=== PATIENT | female | born 1945 | race Caucasian/White ===

== ENCOUNTER → 2018-09-05 11:53 | Outpatient (CLI) | payer OTHER, SELFPAY ==
--- NOTE | 2018-09-05 11:54 | DI.MG.S_ITS ---
BILATERAL DIGITAL SCREENING MAMMOGRAM 3D/2D WITH CAD: 09/05/2018 CLINICAL: Routine screening. Family history of breast cancer. Comparison is made to exams dated: 05/28/2016 mammogram, 02/22/2015 mammogram, and 02/16/2015 mammogram - [facility]. The tissue of both breasts is heterogeneously dense. This may lower the sensitivity of mammography. Current study was also evaluated with a Computer Aided Detection (CAD) system. No significant masses, calcifications, or other findings are seen in either breast. There has been no significant interval change. IMPRESSION: NEGATIVE There is no mammographic evidence of malignancy. A 1 year screening mammogram is recommended. This exam was interpreted at Station ID: [id number]. NOTE: For mammograms, a report in lay terms will be sent to the patient. Approximately 15% of breast malignancies will not be visualized mammographically. In the management of a palpable breast mass, a negative mammogram must not discourage biopsy of a clinically suspicious lesion. Electronically Signed By: Mala trivedi/nancy:09/05/2018 15:33:06 letter sent: Normal Exam ACR BI-RADS Category 1: Negative 3341F
[2018-09-08 15:06] LABS: Fecal Immunochemical Test NOT DETECTED
== END ==
PROVIDERS: PCP Physician Assistant; Visit Provider Physician Assistant
DX: Z12.31 Encounter for screening mammogram for malignant neoplasm of breast (principal); Z80.3 Family history of malignant neoplasm of breast; Z12.11 Encounter for screening for malignant neoplasm of colon
CPT/HCPCS: 77063; 77067; 82274

== ENCOUNTER → 2018-09-06 10:11 | Outpatient (CLI) | payer OTHER, SELFPAY ==
[2018-09-06 11:08] LABS: Alanine Aminotransferase 28 IU/L (9-52); Albumin Globulin Ratio 1.4 (1.0-2.8); Alkaline Phosphatase 60 U/L (38-126); Aspartate Aminotransferase 24 IU/L (14-36); BUN Creatinine Ratio 23.8 (6-22); Bilirubin Total 1.1 mg/dL (0.2-1.3); Blood Urea Nitrogen 19 mg/dL (7-17); Calcium 9.4 mg/dL (8.4-10.2); Carbon Dioxide 28 mmol/L (22-32); Chloride 106 mmol/L (98-107); Cholesterol 138 mg/dL (140-199); Estimated Glomerular Filt Rate > 60.0 mL/min (>60); Globulin 2.8 g/dL (1.7-4.1); Glucose 99 mg/dL (80-110); HDL Cholesterol 58 mg/dL (40-60); HEMOLYSIS < 15 (0-50); LDL Cholesterol Calculated 59 mg/dL (<100); Potassium 4.3 mmol/L (3.4-5.1); Sodium 144 mmol/L (137-145); Total Protein 6.8 g/dL (6.3-8.2); Triglycerides 106 mg/dL (35-150)
[2018-09-06 11:36] LABS: Thyroid Stimulating Hormone 0.73 uIU/mL (0.47-4.68)
[2018-09-06 14:16] LABS: Creatinine Urine Random 183.9 mg/dL
[2018-09-06 14:21] LABS: Microalbumi Creatinin Ratio Ur 3.2 ug/mg CR (<30); Microalbumin Urine Random < 0.6 mg/dL (0-1.6)
== END ==
PROVIDERS: PCP Physician Assistant; Visit Provider Physician Assistant
DX: E03.9 Hypothyroidism, unspecified (principal); E78.5 Hyperlipidemia, unspecified; I10 Essential (primary) hypertension
CPT/HCPCS: 36415; 80053; 80061; 82043; 82570; 84443

== ENCOUNTER → 2019-04-28 09:56 | Outpatient (CLI) | payer OTHER, SELFPAY ==
[2019-04-28 12:03] LABS: BUN Creatinine Ratio 25.7 (6-22); Blood Urea Nitrogen 18 mg/dL (7-17); Calcium 9.4 mg/dL (8.4-10.2); Carbon Dioxide 30 mmol/L (22-32); Chloride 103 mmol/L (98-107); Estimated Glomerular Filt Rate > 60.0 mL/min (>60); Glucose 97 mg/dL (80-110); HEMOLYSIS < 15 (0-50); Potassium 4.1 mmol/L (3.4-5.1); Sodium 141 mmol/L (137-145)
[2019-04-28 12:32] LABS: Thyroid Stimulating Hormone 3.59 uIU/mL (0.47-4.68)
== END ==
PROVIDERS: PCP Physician Assistant; Visit Provider Physician Assistant
DX: E03.9 Hypothyroidism, unspecified (principal); I10 Essential (primary) hypertension
CPT/HCPCS: 36415; 80048; 84443

== ENCOUNTER → 2019-06-12 13:36 | Outpatient (CLI) | payer OTHER, SELFPAY ==
[2019-06-12 14:50] LABS: Thyroid Stimulating Hormone 0.18 uIU/mL (0.47-4.68)
== END ==
PROVIDERS: PCP Physician Assistant; Visit Provider Physician Assistant
DX: E03.9 Hypothyroidism, unspecified (principal)
CPT/HCPCS: 36415; 84443

== ENCOUNTER → 2019-08-03 11:49 | Outpatient (CLI) | payer OTHER, SELFPAY ==
[2019-08-03 13:16] LABS: Thyroid Stimulating Hormone 0.28 uIU/mL (0.47-4.68)
== END ==
PROVIDERS: PCP Physician Assistant; Visit Provider Physician Assistant
DX: E03.9 Hypothyroidism, unspecified (principal); R79.89 Other specified abnormal findings of blood chemistry
CPT/HCPCS: 36415; 84443

== ENCOUNTER → 2019-11-04 10:38 | Outpatient (CLI) | payer OTHER, SELFPAY ==
[2019-11-04 11:38] LABS: Alanine Aminotransferase 15 IU/L (<35); Albumin 3.7 g/dL (3.5-5.0); Albumin Globulin Ratio 1.4 (1.0-2.8); Alkaline Phosphatase 63 U/L (38-126); Aspartate Aminotransferase 22 IU/L (14-36); BUN Creatinine Ratio 22.5 (6-22); Bilirubin Total 0.8 mg/dL (0.2-1.3); Blood Urea Nitrogen 18 mg/dL (7-17); Calcium 9.3 mg/dL (8.4-10.2); Carbon Dioxide 25 mmol/L (22-32); Chloride 104 mmol/L (98-107); Cholesterol 155 mg/dL (140-199); Estimated Glomerular Filt Rate > 60.0 mL/min (>60); Globulin 2.6 g/dL (1.7-4.1); Glucose 108 mg/dL (80-110); HDL Cholesterol 65 mg/dL (40-60); HEMOLYSIS < 15 (0-50); LDL Cholesterol Calculated 70 mg/dL (<100); Potassium 4.1 mmol/L (3.4-5.1); Sodium 136 mmol/L (137-145); Total Protein 6.3 g/dL (6.3-8.2); Triglycerides 101 mg/dL (35-150)
[2019-11-04 17:29] LABS: Thyroid Stimulating Hormone 0.41 uIU/mL (0.47-4.68)
[2019-11-04 19:44] LABS: Creatinine Urine Random 152.4 mg/dL
[2019-11-04 19:52] LABS: Microalbumi Creatinin Ratio Ur 3.9 ug/mg CR (<30); Microalbumin Urine Random < 0.6 mg/dL (0-1.6)
== END ==
PROVIDERS: PCP Physician Assistant; Visit Provider Physician Assistant
DX: E03.9 Hypothyroidism, unspecified (principal); E78.5 Hyperlipidemia, unspecified; I10 Essential (primary) hypertension
CPT/HCPCS: 36415; 80053; 80061; 82043; 82570; 84443

== ENCOUNTER → 2019-12-24 09:48 | Outpatient (CLI) | payer MEDICARE, SELFPAY ==
[2019-12-24 11:14] LABS: Thyroid Stimulating Hormone 0.24 uIU/mL (0.47-4.68)
== END ==
PROVIDERS: PCP Physician Assistant; Referring Provider Physician Assistant; Visit Provider Physician Assistant
DX: E03.9 Hypothyroidism, unspecified (principal); R79.89 Other specified abnormal findings of blood chemistry
CPT/HCPCS: 36415; 84443

== ENCOUNTER → 2020-05-24 11:11 | Outpatient (CLI) | payer MEDICARE, SELFPAY ==
[2020-05-24 13:01] LABS: TSH w/ Reflex to FT4 7.62 uIU/mL (0.47-4.68)
== END ==
PROVIDERS: PCP Registered Nurse Diabetes Educator; Referring Provider Registered Nurse Diabetes Educator; Visit Provider Registered Nurse Diabetes Educator
DX: E03.9 Hypothyroidism, unspecified (principal)
CPT/HCPCS: 36415; 84439; 84443

== ENCOUNTER → 2020-07-14 09:59 | Outpatient (CLI) | payer MEDICARE, SELFPAY ==
--- NOTE | 2020-07-14 10:01 | DI.RAD.S_ITS ---
PROCEDURE: XR CHEST 2V INDICATIONS: chronic cough, subjective wheezing TECHNIQUE: 2 views of the chest were acquired. COMPARISON: None. FINDINGS: Surgical changes and devices: None. Lungs and pleura: Lungs are clear. No pleural effusions or pneumothorax. Mediastinum: Mediastinal contours are normal. Heart size is normal. Bones and chest wall: No suspicious bony abnormalities. Soft tissues appear unremarkable. IMPRESSION: Normal for age, source of current chronic cough symptoms is not seen. Dictated by: Ac Carr M.D. on 07/14/2020 at 10:41 Approved by: Ac Carr M.D. on 07/14/2020 at 10:42
[2020-07-14 11:35] LABS: TSH w/ Reflex to FT4 2.25 uIU/mL (0.47-4.68)
[2020-07-15 14:36] LABS: Fecal Immunochemical Test Negative (Negative)
== END ==
PROVIDERS: PCP Registered Nurse Diabetes Educator; Referring Provider Registered Nurse Diabetes Educator; Visit Provider Registered Nurse Diabetes Educator
DX: R05 Cough (principal); E03.9 Hypothyroidism, unspecified; Z12.11 Encounter for screening for malignant neoplasm of colon
CPT/HCPCS: 36415; 71046; 82274; 84443

== ENCOUNTER → 2020-07-23 13:50 | Outpatient (CLI) | payer MEDICARE, SELFPAY ==
--- NOTE | 2020-07-23 14:18 | DI.MG.S_ITS ---
Patient Name: MARGARITO PERKINS date: 1945 Sex: F Attending Physician: Nicho Indications: Date: 07/23/2020 14:27 At the request of: JANAE IRVIN Procedure: MM screening mammo BI BILATERAL DIGITAL SCREENING MAMMOGRAM 3D/2D WITH CAD: 07/23/2020 CLINICAL: Routine screening. Family history of breast cancer. Comparison is made to exams dated: 09/05/2018 mammogram, 05/28/2016 mammogram, 02/22/2015 mammogram, and 02/16/2015 mammogram - [facility]. There are scattered fibroglandular elements in both breasts. Current study was also evaluated with a Computer Aided Detection (CAD) system. No significant masses, calcifications, or other findings are seen in either breast. There has been no significant interval change. IMPRESSION: NEGATIVE There is no mammographic evidence of malignancy. A 1 year screening mammogram is recommended. This exam was interpreted at Station ID: [id number]. NOTE: For mammograms, a report in lay terms will be sent to the patient. Approximately 15% of breast malignancies will not be visualized mammographically. In the management of a palpable breast mass, a negative mammogram must not discourage biopsy of a clinically suspicious lesion. Electronically Signed By: Kishore andersen/nancy:07/26/2020 09:57:05 letter sent: Normal Exam ACR BI-RADS Category 1: Negative 3341F
== END ==
PROVIDERS: PCP Registered Nurse Diabetes Educator; Referring Provider Registered Nurse Diabetes Educator; Visit Provider Registered Nurse Diabetes Educator
DX: Z12.31 Encounter for screening mammogram for malignant neoplasm of breast (principal); Z80.3 Family history of malignant neoplasm of breast
CPT/HCPCS: 77063; 77067

== ENCOUNTER → 2020-10-21 08:49 | Outpatient (CLI) | payer MEDICARE, SELFPAY ==
[2020-10-21 09:13] LABS: Add Manual Diff / Slide Review NO; Basophils Absolute Auto 0 /uL (0-100); Basophils Percent Auto 0.7 % (0-2); Eosinophils Absolute Auto 300 /uL (0-450); Eosinophils Percent Auto 4.1 % (2-4); Hematocrit 40.6 % (36-46); Hemoglobin 13.4 g/dL (12.0-16.0); Lymphocytes Absolute Auto 2500 /uL (1100-4500); Lymphocytes Percent Auto 35.3 % (25-40); Mean Corpuscular HGB Conc 32.9 % (30-36); Mean Corpuscular Hemoglobin 28.1 PG (26-34); Mean Corpuscular Volume 85.3 fL (80-100); Monocytes Absolute Auto 600 /uL (0-900); Monocytes Percent Auto 8.7 % (3-14); Neutrophils Absolute Auto 3700 /uL (1500-7000); Neutrophils Percent Auto 51.2 % (50-75); Platelet Count 237 X10^3/uL (150-400); Red Blood Cell Count 4.76 X10^6/uL (4.0-5.2); Red Cell Distribution Width 13.3 % (11.6-14.8); White Blood Cell Count 7.2 X10^3/uL (4.5-11.0)
[2020-10-21 09:40] LABS: Alanine Aminotransferase 14 IU/L (<35); Albumin 3.6 g/dL (3.5-5.0); Albumin Globulin Ratio 1.3 (1.0-2.8); Alkaline Phosphatase 65 U/L (38-126); Aspartate Aminotransferase 23 IU/L (14-36); BUN Creatinine Ratio 23.6 (6-22); Bilirubin Total 0.6 mg/dL (0.2-1.3); Blood Urea Nitrogen 17 mg/dL (7-17); Carbon Dioxide 28 mmol/L (22-32); Chloride 108 mmol/L (98-107); Cholesterol 148 mg/dL (140-199); Estimated Glomerular Filt Rate > 60.0 mL/min (>60); Globulin 2.7 g/dL (1.7-4.1); Glucose 119 mg/dL (80-110); HDL Cholesterol 66 mg/dL (40-60); HEMOLYSIS < 15 (0-50); LDL Cholesterol Calculated 63 mg/dL (<100); Magnesium 1.9 mg/dL (1.6-2.3); Sodium 139 mmol/L (137-145); Total Protein 6.3 g/dL (6.3-8.2); Triglycerides 95 mg/dL (35-150)
[2020-10-21 10:08] LABS: TSH w/ Reflex to FT4 2.28 uIU/mL (0.47-4.68)
[2020-10-21 10:24] LABS: Vitamin B12 322 pg/mL (239-931)
== END ==
PROVIDERS: PCP Registered Nurse Diabetes Educator; Referring Provider Registered Nurse Diabetes Educator; Visit Provider Registered Nurse Diabetes Educator
DX: E03.9 Hypothyroidism, unspecified (principal); I10 Essential (primary) hypertension; R73.9 Hyperglycemia, unspecified; E78.5 Hyperlipidemia, unspecified; K21.9 Gastro-esophageal reflux disease without esophagitis; Z51.81 Encounter for therapeutic drug level monitoring
CPT/HCPCS: 36415; 80053; 80061; 82607; 83036; 83735; 84443; 85025

== ENCOUNTER → 2020-12-13 17:29 | Outpatient (CLI) | payer MEDICARE, SELFPAY ==
--- NOTE | 2020-12-13 17:31 | DI.RAD.S_ITS ---
PROCEDURE: XR FOOT RT MIN 3V INDICATIONS: R heel/ankle pain x 1.5 months following inversion injury TECHNIQUE: 3 views of the foot were acquired. COMPARISON: None. FINDINGS: Bones: No fracture. 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 Spurring and cortical deformity at the base of the 5th metatarsal. Incidentally noted os peroneum. Hallux valgus appearance although weight-bearing views would be more specific. Large plantar and posterior calcaneal spurs. Soft tissues: No tibiotalar joint effusion. Achilles tendon appears normal. IMPRESSION: Large plantar and posterior calcaneal spurs. Degenerative changes as above Dictated by: Haja Gonzalez M.D. on 12/14/2020 at 9:18 Approved by: Haja Gonzalez M.D. on 12/14/2020 at 9:20
--- NOTE | 2020-12-13 17:31 | DI.RAD.S_ITS ---
PROCEDURE: XR ANKLE RT MIN 3V INDICATIONS: R heel/ankle pain x 1.5 months following inversion injury TECHNIQUE: 3 views of the ankle were acquired. COMPARISON: None. FINDINGS: Bones: No fracture. Tibiotalar joint degeneration, with chronic appearing ununited ossicles, spurring and sclerosis. Plantar posterior calcaneal spur. Diffuse hindfoot and midfoot degenerative changes. Soft tissues: No tibiotalar joint effusion. Achilles tendon appears normal. IMPRESSION: No fracture. If the patient's symptoms do not improve recommend MRI. Dictated by: Haja Gonzalez M.D. on 12/14/2020 at 9:20 Approved by: Haja Gonzalez M.D. on 12/14/2020 at 9:36
== END ==
PROVIDERS: PCP Registered Nurse Diabetes Educator; Referring Provider Registered Nurse Diabetes Educator; Visit Provider Registered Nurse Diabetes Educator
DX: M79.671 Pain in right foot (principal); M25.571 Pain in right ankle and joints of right foot; M77.31 Calcaneal spur, right foot; M19.071 Primary osteoarthritis, right ankle and foot
CPT/HCPCS: 73610; 73630

== ENCOUNTER → 2021-10-25 09:15 | Outpatient (CLI) | payer MEDICARE, SELFPAY ==
[2021-10-25 10:11] LABS: Mean Corpuscular HGB Conc 33.3 % (30-36); Mean Corpuscular Volume 84.7 fL (80-100)
[2021-10-25 10:36] LABS: Alkaline Phosphatase 52 U/L (38-126); Glucose 97 mg/dL (80-110); Potassium 4.3 mmol/L (3.4-5.1); Sodium 139 mmol/L (137-145)
[2021-10-25 11:13] LABS: TSH w/ Reflex to FT4 4.77 uIU/mL (0.47-4.68)
[2021-10-25 11:52] LABS: Free T4, Direct Thyroxine 1.66 ng/dL (0.78-2.19)
== END ==
PROVIDERS: PCP Registered Nurse Diabetes Educator; Referring Provider Registered Nurse Diabetes Educator; Visit Provider Registered Nurse Diabetes Educator
DX: E03.9 Hypothyroidism, unspecified (principal); R73.01 Impaired fasting glucose; I10 Essential (primary) hypertension; E78.5 Hyperlipidemia, unspecified
CPT/HCPCS: 36415; 80053; 80061; 83036; 84439; 84443; 85027

== ENCOUNTER → 2021-12-29 11:20 | Outpatient (CLI) | payer MEDICARE, SELFPAY ==
[2021-12-29 13:50] LABS: TSH w/ Reflex to FT4 1.46 uIU/mL (0.47-4.68)
== END ==
PROVIDERS: PCP Registered Nurse Diabetes Educator; Referring Provider Registered Nurse Diabetes Educator; Visit Provider Registered Nurse Diabetes Educator
DX: I10 Essential (primary) hypertension
CPT/HCPCS: 36415; 80053; 80061; 83036; 84443; 85027

== ENCOUNTER 2022-07-01 11:04 | Inpatient (IN) | payer MEDICARE, SELFPAY ==
[2022-07-01] VITALS (41 sets, daily range): BP systolic 99–184; BP diastolic 52–99; PULSE 54–71; RESP 17–51; TEMP 35.6; O2SAT 91–97; BMI 30.2
--- NOTE | 2022-07-01 11:19 | DI.RAD.S_ITS ---
PROCEDURE: XR CHEST 1V INDICATIONS: short of breath TECHNIQUE: One view of the chest was acquired. COMPARISON: [facility], CR, XR CHEST 2V, 07/14/2020, 10:04. FINDINGS: Surgical changes and devices: None. Lungs and pleura: On this semiupright portable chest examination, no large pneumothorax or large pleural effusions are seen. No focal infiltrates are seen. Mediastinum: The cardiac contours are within normal limits. The aorta demonstrates calcification and tortuosity. Bones and chest wall: No suspicious bony lesions. Age-appropriate bony degenerative changes are seen. Overlying soft tissues appear unremarkable. IMPRESSION: Limited portable chest examination, without a significant cardiopulmonary abnormality identified. Dictated by: Joe Schneider M.D. on 07/01/2022 at 10:56 Approved by: Joe Schneider M.D. on 07/01/2022 at 10:57
--- NOTE | 2022-07-01 11:19 | ED_ITS ---
HPI - SOB/Dyspnea <Mary Montejo DO - Last Filed: 07/02/22 18:53> General Chief Complaint: Shortness of Breath/Dyspnea Stated Complaint: SOB, Productive cough Time Seen by Provider: 07/01/22 11:11 History of Present Illness HPI Narrative: Patient is a 77-year-old female history of hypothyroid hypertension hyperlipidemia presenting with increasing shortness of breath. She says she says is increasing shortness of breath the last couple of weeks she noticed it mostly with like some sort of exertion. She actually says she is able to walk to have mild around the [facility] she does not need to stop. Afterwards she developed some coughing and some shortness of breath when she is coughin. Coughing seems to be her biggest complaint this morning. Her symptoms got significantly worse this morning. She at no time has any chest discomfort at any time. She thought it may be due to allergies so she took an [id number] allergy medication without any relief. This morning she had worsening shortness of breath. She denies any orthopnea no peripheral swelling. She has some obvious respiratory distress and audible wheezing while questioni ng. She has no fever or chills. No infectious like symptoms. Related Data Home Medications Medication Instructions Recorded Confirmed [ARREDS] 1 tab PO QDAY ##0 08/22/17 07/02/22 multivitamin (Multiple Vitamins 1 tab PO QDAY ##0 08/22/17 07/02/22 tablet) atorvastatin 10 mg tablet 10 mg PO BEDTIME 07/02/22 07/02/22 metoprolol succinate 50 mg 50 mg PO DAILY 07/02/22 07/02/22 tablet,extended release 24 hr Previous Rx's Medication Instructions Recorded omeprazole 20 mg capsule,delayed 20 mg PO DAILY #90 caps 04/24/21 release levothyroxine 112 mcg tablet 112 mcg PO DAILY #90 tabs 01/01/22 Allergies Allergy/AdvReac Type Severity Reaction Status Date / Time cefaclor Allergy Severe (Ceclor) Verified 07/01/22 11:23 HIVES AND SWELLING hydrochlorothiazide AdvReac Severe PANCREATITI Verified 07/01/22 11:23 S Review of Systems <DO Mary Arora Last Filed: 07/02/22 18:53> Review of Systems Narrative: GENERAL: Denies chills, fatigue, malaise, fever, sweats, travel HEENT: Denies sinus pain, ear pain, sore throat, difficulty swallowing, neck pain RESPIRATORY: See HPI CARDIOVASCULAR: Denies chest pain, palpitations, orthopnea, edema GASTROINTESTINAL: Denies nausea, vomiting, abdominal pain, diarrhea, constipation, melena. : Denies dysuria, frequency, incontinence, hematuria, urinary retention, flank pain. MUSCULOSKELETAL: Denies weakness, joint pain, or bony pain SKIN: No rash, no erythema, no pruritus NEUROLOGIC: Denies weakness, dizziness, headache, numbness, change in speech, confusion PSYCHIATRIC: No concerning psychosocial issues. 12 point review of systems is negative except for those stated above and HPI Patient History <Mary Montejo DO - Last Filed: 07/02/22 18:53> Medical History (Updated 07/02/22 @ 22:19 by JEREMY Lewis) Chronic cough GERD (gastroesophageal reflux disease) Hypothyroidism (acquired) Impaired fasting blood sugar LPRD (laryngopharyngeal reflux disease) Surgical History (Updated 07/02/22 @ 22:19 by JEREMY Lewis) History of appendectomy Family History (Updated 07/02/22 @ 22:21 by JEREMY Lewis) Mother Congestive heart failure Father Stroke Alcohol abuse Social History household members: none Smoking Status: Never smoker second hand exposure: No alcohol intake: current substance use type: does not use Smoking Status: Never smoker Exam <Mary Montejo DO - Last Filed: 07/02/22 18:53> Initial Vital Signs Initial Vital Signs: Vital Signs Pulse Rate 69 07/01/22 11:14 Pulse Oximetry 95 07/01/22 11:14 GENERAL: Alert 77-year-old female with [id number] respiratory distress HEENT: Head atraumatic,EOMI, pupils reactive, face symmetric, moist mucous membranes CARDIOVASCULAR: Regular rate and rhythm without murmurs, rubs or gallops. RESPIRATORY: Tachypneic audible wheezing breath sounds wheezing bilaterally speaks in about 5 word sentences ABDOMEN: Soft, nontender. Normoactive bowel sounds all 4 quadrants. No guarding or rebound. EXTREMITIES: Normal range of motion, no clubbing or edema. Neurovascularly intact NEUROLOGICAL: Alert and oriented x4. SKIN: Warm, dry, no laceration, no petechiae, no rashes or lesions. <Rosy Srivastava, DO - Last Filed: 07/02/22 23:17> Initial Vital Signs Initial Vital Signs: Vital Signs Pulse Rate 69 07/01/22 11:14 Pulse Oximetry 95 07/01/22 11:14 Course <Mary Nikia, DO - Last Filed: 07/02/22 18:53> Orders Ordered: ED Orders 07/02/22 17:25 PTT [Partial Thromboplastin Time] Stat 07/03/22 11:00 CMP [Comprehensive Metabolic Panel] DAILY Complete Blood Count AUTO DIFF DAILY Troponin I DAILY 07/04/22 11:00 CMP [Comprehensive Metabolic Panel] DAILY Complete Blood Count AUTO DIFF DAILY Troponin I DAILY 07/05/22 11:00 CMP [Comprehensive Metabolic Panel] DAILY Complete Blood Count AUTO DIFF DAILY Troponin I DAILY 07/06/22 11:00 CMP [Comprehensive Metabolic Panel] DAILY Complete Blood Count AUTO DIFF DAILY Troponin I DAILY Acetaminophen (Acetaminophen 325 Mg Tablet) 650 mg PO Q6HR PRN PRN Reason: Fever/Mild Pain (1-3) Albuterol (Albuterol 2.5 Mg/3 Ml Neb (Adult)) 2.5 mg INH RTQ4HR PRN PRN Reason: Shortness Of Breath Or Wheezing Last Admin: 07/02/22 21:33 Dose: 2.5 mg Documented By: DALE Albuterol/Ipratropium (Albuterol/Ipratropium 3 Ml Ampul) 3 ml INH RTQ4HR PRN PRN Reason: Shortness Of Breath Aspirin (Aspirin 81 Mg Chew Tab) 324 mg PO DAILY [facility] Last Admin: 07/02/22 08:26 Dose: 324 mg Documented By: AMU Atorvastatin Calcium (Atorvastatin 20 Mg Tablet) 80 mg PO DAILY [facility] Last Admin: 07/02/22 08:24 Dose: 80 mg Documented By: AMU Heparin Sodium/Dextrose (Heparin Drip) 25,000 unit in 500 mls @ 20 mls/hr IV CONT YEE; Protocol Last Admin: 07/02/22 19:19 Dose: 800 units/hr, 16 mls/hr Documented By: Titration: 07/02/22 19:19 Dose: 800 units/hr, 16 mls/hr Documented By: Titration: 07/02/22 18:25 Dose: 800 units/hr, 16 mls/hr Documented By: Titration: 07/02/22 12:23 Dose: 800 units/hr, 16 mls/hr Documented By: Titration: 07/02/22 05:07 Dose: 800 units/hr, 16 mls/hr Documented By: Titration: 07/01/22 22:56 Dose: 850 units/hr, 17 mls/hr Documented By: Titration: 07/01/22 21:56 Dose: 0 units/hr, 0 mls/hr Documented By: Admin: 07/01/22 14:57 Dose: 1,000 units/hr, 20 mls/hr Documented By: AT Levothyroxine Sodium (Levothyroxine 112 Mcg Tablet) 112 mcg PO DAILY@0600 [facility] Last Admin: 07/02/22 07:26 Dose: 112 mcg Documented By: JAIDEN Lutein (Vit C/E/Zn/Coppr/Lutein/Zeaxan Capsule) 1 cap PO DAILY [facility] Metoprolol Succinate (Metoprolol Er 50 Mg Tablet) 50 mg PO DAILY [facility] Last Admin: 07/02/22 08:24 Dose: 50 mg Documented By: AMViolette Morphine Sulfate (Morphine 2 Mg/Ml Inj) 2 mg IV Q5MIN PRN PRN Reason: Chest Pain Nitroglycerin (Nitroglycerin 0.4 Mg Sl Tab) 0.4 mg SL [id number] PRN PRN Reason: Chest Pain Ondansetron HCl (Ondansetron 4 Mg/2 Ml Inj) 4 mg IV Q4HR PRN PRN Reason: nausea Pantoprazole Sodium (Pantoprazole Dr 20 Mg Tablet) 20 mg PO DAILY [facility] Prednisone (Prednisone 20 Mg Tablet) 40 mg PO DAILY [facility] Stop: 07/08/22 08:59 Sennosides (Sennosides 8.6 Mg Tablet) 17.2 mg PO BEDTIME YEE Last Admin: 07/02/22 20:34 Dose: 17.2 mg Documented By: AMH Sodium Chloride (Sodium Chloride 0.9% Flush) 10 ml IV PRN PRN PRN Reason: Flush Last Admin: 07/02/22 21:28 Dose: 10 ml Documented By: AMH Sodium Chloride (Sodium Chloride 0.9% Flush) 10 ml IV BID YEE Last Admin: 07/02/22 20:34 Dose: 10 ml Documented By: AMH Discontinued Medications Albuterol/Ipratropium (Albuterol/Ipratropium 3 Ml Ampul) 3 ml INH NOW ONE Stop: 07/01/22 11:20 Last Admin: 07/01/22 11:25 Dose: 3 ml Documented By: MK Aspirin (Aspirin 81 Mg Chew Tab) 324 mg PO NOW ONE Stop: 07/01/22 14:44 Last Admin: 07/01/22 14:54 Dose: 324 mg Documented By: AT Atorvastatin Calcium (Atorvastatin 20 Mg Tablet) 80 mg PO NOW ONE Stop: 07/01/22 14:44 Last Admin: 07/01/22 16:06 Dose: 80 mg Documented By: AT Heparin Sodium (Porcine) (Heparin 5,000 Unit/Ml Vial) 5,000 unit IV NOW ONE Stop: 07/01/22 14:33 Last Admin: 07/01/22 14:56 Dose: 5,000 unit Documented By: AT Levothyroxine Sodium (Levothyroxine 112 Mcg Tablet) 112 mcg PO DAILY [facility] Methylprednisolone (Methylprednisolone 125 Mg/2 Ml Vial) 125 mg IV NOW ONE Stop: 07/01/22 12:03 Last Admin: 07/01/22 12:11 Dose: 125 mg Documented By: AT Methylprednisolone (Methylprednisolone 40 Mg/Ml Vial) 40 mg IV NOW ONE Stop: 07/02/22 21:09 Last Admin: 07/02/22 21:28 Dose: 40 mg Documented By: AMH Metoprolol Succinate (Metoprolol Er 50 Mg Tablet) 50 mg PO NOW ONE Stop: 07/01/22 14:44 Last Admin: 07/01/22 16:06 Dose: 50 mg Documented By: AT Metoprolol Succinate (Metoprolol Er 50 Mg Tablet) 50 mg PO DAILY [facility] Ondansetron HCl (Ondansetron 4 Mg/2 Ml Inj) 4 mg IV Q4HR [facility] Vital Signs Vital signs: Vital Signs - 8 hr 07/02/22 15:30 07/02/22 16:00 07/02/22 16:00 Pulse Rate 63 57 L Respiratory Rate 22 25 H Blood Pressure 115/58 L Pulse Oximetry 93 93 07/02/22 16:30 07/02/22 17:00 07/02/22 17:30 Pulse Rate 61 62 61 Respiratory Rate 24 20 20 Blood Pressure Pulse Oximetry 94 94 94 <Rosy C Mank, DO - Last Filed: 07/02/22 23:17> Orders Ordered: ED Orders 07/02/22 17:25 PTT [Partial Thromboplastin Time] Stat 07/03/22 11:00 CMP [Comprehensive Metabolic Panel] DAILY Complete Blood Count AUTO DIFF DAILY Troponin I DAILY 07/04/22 11:00 CMP [Comprehensive Metabolic Panel] DAILY Complete Blood Count AUTO DIFF DAILY Troponin I DAILY 07/05/22 11:00 CMP [Comprehensive Metabolic Panel] DAILY Complete Blood Count AUTO DIFF DAILY Troponin I DAILY 07/06/22 11:00 CMP [Comprehensive Metabolic Panel] DAILY Complete Blood Count AUTO DIFF DAILY Troponin I DAILY Acetaminophen (Acetaminophen 325 Mg Tablet) 650 mg PO Q6HR PRN PRN Reason: Fever/Mild Pain (1-3) Albuterol (Albuterol 2.5 Mg/3 Ml Neb (Adult)) 2.5 mg INH RTQ4HR PRN PRN Reason: Shortness Of Breath Or Wheezing Last Admin: 07/02/22 21:33 Dose: 2.5 mg Documented By: DALE Albuterol/Ipratropium (Albuterol/Ipratropium 3 Ml Ampul) 3 ml INH RTQ4HR PRN PRN Reason: Shortness Of Breath Aspirin (Aspirin 81 Mg Chew Tab) 324 mg PO DAILY [facility] Last Admin: 07/02/22 08:26 Dose: 324 mg Documented By: AMViolette Atorvastatin Calcium (Atorvastatin 20 Mg Tablet) 80 mg PO DAILY [facility] Last Admin: 07/02/22 08:24 Dose: 80 mg Documented By: AMU Heparin Sodium/Dextrose (Heparin Drip) 25,000 unit in 500 mls @ 20 mls/hr IV CONT YEE; Protocol Last Admin: 07/02/22 19:19 Dose: 800 units/hr, 16 mls/hr Documented By: Titration: 07/02/22 19:19 Dose: 800 units/hr, 16 mls/hr Documented By: Titration: 07/02/22 18:25 Dose: 800 units/hr, 16 mls/hr Documented By: Titration: 07/02/22 12:23 Dose: 800 units/hr, 16 mls/hr Documented By: Titration: 07/02/22 05:07 Dose: 800 units/hr, 16 mls/hr Documented By: Titration: 07/01/22 22:56 Dose: 850 units/hr, 17 mls/hr Documented By: Titration: 07/01/22 21:56 Dose: 0 units/hr, 0 mls/hr Documented By: Admin: 07/01/22 14:57 Dose: 1,000 units/hr, 20 mls/hr Documented By: AT Levothyroxine Sodium (Levothyroxine 112 Mcg Tablet) 112 mcg PO DAILY@0600 [facility] Last Admin: 07/02/22 07:26 Dose: 112 mcg Documented By: JAIDEN Lutein (Vit C/E/Zn/Coppr/Lutein/Zeaxan Capsule) 1 cap PO DAILY [facility] Metoprolol Succinate (Metoprolol Er 50 Mg Tablet) 50 mg PO DAILY [facility] Last Admin: 07/02/22 08:24 Dose: 50 mg Documented By: QUYNH Morphine Sulfate (Morphine 2 Mg/Ml Inj) 2 mg IV Q5MIN PRN PRN Reason: Chest Pain Nitroglycerin (Nitroglycerin 0.4 Mg Sl Tab) 0.4 mg SL [id number] PRN PRN Reason: Chest Pain Ondansetron HCl (Ondansetron 4 Mg/2 Ml Inj) 4 mg IV Q4HR PRN PRN Reason: nausea Pantoprazole Sodium (Pantoprazole Dr 20 Mg Tablet) 20 mg PO DAILY [facility] Prednisone (Prednisone 20 Mg Tablet) 40 mg PO DAILY [facility] Stop: 07/08/22 08:59 Sennosides (Sennosides 8.6 Mg Tablet) 17.2 mg PO BEDTIME [facility] Last Admin: 07/02/22 20:34 Dose: 17.2 mg Documented By: RAJESH Sodium Chloride (Sodium Chloride 0.9% Flush) 10 ml IV PRN PRN PRN Reason: Flush Last Admin: 07/02/22 21:28 Dose: 10 ml Documented By: AMH Sodium Chloride (Sodium Chloride 0.9% Flush) 10 ml IV BID [facility] Last Admin: 07/02/22 20:34 Dose: 10 ml Documented By: AMH Discontinued Medications Albuterol/Ipratropium (Albuterol/Ipratropium 3 Ml Ampul) 3 ml INH NOW ONE Stop: 07/01/22 11:20 Last Admin: 07/01/22 11:25 Dose: 3 ml Documented By: RICARDO Aspirin (Aspirin 81 Mg Chew Tab) 324 mg PO NOW ONE Stop: 07/01/22 14:44 Last Admin: 07/01/22 14:54 Dose: 324 mg Documented By: AT Atorvastatin Calcium (Atorvastatin 20 Mg Tablet) 80 mg PO NOW ONE Stop: 07/01/22 14:44 Last Admin: 07/01/22 16:06 Dose: 80 mg Documented By: AT Heparin Sodium (Porcine) (Heparin 5,000 Unit/Ml Vial) 5,000 unit IV NOW ONE Stop: 07/01/22 14:33 Last Admin: 07/01/22 14:56 Dose: 5,000 unit Documented By: AT Levothyroxine Sodium (Levothyroxine 112 Mcg Tablet) 112 mcg PO DAILY [facility] Methylprednisolone (Methylprednisolone 125 Mg/2 Ml Vial) 125 mg IV NOW ONE Stop: 07/01/22 12:03 Last Admin: 07/01/22 12:11 Dose: 125 mg Documented By: AT Methylprednisolone (Methylprednisolone 40 Mg/Ml Vial) 40 mg IV NOW ONE Stop: 07/02/22 21:09 Last Admin: 07/02/22 21:28 Dose: 40 mg Documented By: AMH Metoprolol Succinate (Metoprolol Er 50 Mg Tablet) 50 mg PO NOW ONE Stop: 07/01/22 14:44 Last Admin: 07/01/22 16:06 Dose: 50 mg Documented By: AT Metoprolol Succinate (Metoprolol Er 50 Mg Tablet) 50 mg PO DAILY [facility] Ondansetron HCl (Ondansetron 4 Mg/2 Ml Inj) 4 mg IV Q4HR [facility] Vital Signs Vital signs: Vital Signs - 8 hr 07/02/22 15:30 07/02/22 16:00 07/02/22 16:00 Pulse Rate 63 57 L Respiratory Rate 22 25 H Blood Pressure 115/58 L Pulse Oximetry 93 93 07/02/22 16:30 07/02/22 17:00 07/02/22 17:30 Pulse Rate 61 62 61 Respiratory Rate 24 20 20 Blood Pressure Pulse Oximetry 94 94 94 MDM - SOB/Dyspnea <Mary Montejo DO - Last Filed: 07/02/22 18:53> Lab Data Result diagrams: 07/02/22 11:25 07/02/22 11:25 Labs: Lab Results 07/01/22 07/01/22 07/01/22 Range/Units 11:15 11:27 11:27 WBC 8.0 (4.5-11.0) X10^3/uL RBC 4.82 (4.0-5.2) X10^6/uL Hgb 13.8 (12.0-16.0) g/dL Hct 40.4 (36-46) % MCV 83.8 (80-100) fL MCH 28.6 (26-34) PG MCHC 34.1 (30-36) % RDW 13.8 (11.6-14.8) % Plt Count 226 (150-400) X10^3/uL Neut % (Auto) 73.1 (50-75) % Lymph % (Auto) 17.1 L (25-40) % Major % (Auto) 6.4 (3-14) % Eos % (Auto) 2.9 (2-4) % Baso % (Auto) 0.5 (0-2) % Neut # (Auto) 5800 (8079-6871) /uL Lymph # (Auto) 1400 (5362-6511) /uL Major # (Auto) 500 (0-900) /uL Eos # (Auto) 200 (0-450) /uL Baso # (Auto) 0 (0-100) /uL APTT (26-36) SECONDS D-Dimer (<500) ng/ml Sodium 141 (137-145) mmol/L Potassium 4.0 (3.4-5.1) mmol/L Chloride 109 H (98-107) mmol/L Carbon Dioxide 23 (22-32) mmol/L BUN 24 H (7-17) mg/dL Creatinine 0.86 (0.52-1.04) mg/dL Estimated GFR > 60 (>60) mL/min BUN/Creatinine Ratio 27.9 H (6-22) Glucose 127 H (80-110) mg/dL Lactate (0.7-2.1) mmol/L Calcium 8.6 (8.4-10.2) mg/dL Magnesium (1.6-2.3) mg/dL Total Bilirubin 0.7 (0.2-1.3) mg/dL AST 24 (14-36) IU/L ALT 14 (<35) IU/L Alkaline Phosphatase 59 (38-126) U/L Total Creatine Kinase (30-135) U/L CK-MB (CK-2) CK-MB (CK-2) Rel Index Troponin I (0.01-0.034) ng/mL NT-Pro-B Natriuret Pep (<450) pg/mL Total Protein 6.6 (6.3-8.2) g/dL Albumin 3.7 (3.5-5.0) g/dL Globulin 2.9 (1.7-4.1) g/dL Albumin/Globulin Ratio 1.3 (1.0-2.8) Lipase (23-300) U/L Procalcitonin (<0.5) ng/mL Chlamy pneumoniae PCR (Not Detect) Adenovirus (PCR) (Not Detect) B. pertussis DNA (PCR) (Not Detecte) B.parapertussis DNA PCR (Not Detecte) Coronavirus OC43 (PCR) (Not Detect) Coronavirus HKU1 (PCR) (Not Detect) Coronavirus 229E (PCR) (Not Detect) SARS-CoV-2 (PCR) Cancelled Coronavirus NL63 (PCR) (Not Detect) Human Metapneumovir PCR (Not Detect) Influenza Type A (PCR) (Not Detect) Influenza Type B (PCR) (Not Detect) M. pneumoniae (PCR) (Not Detect) Parainfluenza 1 (PCR) (Not Detect) Parainfluenza 2 (PCR) (Not Detect) Parainfluenza 3 (PCR) (Not Detect) Parainfluenza 4 (PCR) (Not Detect) RSV (PCR) (Not Detect) Entero/Rhino (PCR) (Not Detect) 07/01/22 07/01/22 07/01/22 Range/Units 11:27 11:27 11:27 WBC (4.5-11.0) X10^3/uL RBC (4.0-5.2) X10^6/uL Hgb (12.0-16.0) g/dL Hct (36-46) % MCV (80-100) fL MCH (26-34) PG MCHC (30-36) % RDW (11.6-14.8) % Plt Count (150-400) X10^3/uL Neut % (Auto) (50-75) % Lymph % (Auto) (25-40) % Major % (Auto) (3-14) % Eos % (Auto) (2-4) % Baso % (Auto) (0-2) % Neut # (Auto) (2619-9006) /uL Lymph # (Auto) (0977-8635) /uL Major # (Auto) (0-900) /uL Eos # (Auto) (0-450) /uL Baso # (Auto) (0-100) /uL APTT (26-36) SECONDS D-Dimer (<500) ng/ml Sodium (137-145) mmol/L Potassium (3.4-5.1) mmol/L Chloride (98-107) mmol/L Carbon Dioxide (22-32) mmol/L BUN (7-17) mg/dL Creatinine (0.52-1.04) mg/dL Estimated GFR (>60) mL/min BUN/Creatinine Ratio (6-22) Glucose (80-110) mg/dL Lactate 1.4 (0.7-2.1) mmol/L Calcium (8.4-10.2) mg/dL Magnesium (1.6-2.3) mg/dL Total Bilirubin (0.2-1.3) mg/dL AST (14-36) IU/L ALT (<35) IU/L Alkaline Phosphatase (38-126) U/L Total Creatine Kinase 52 (30-135) U/L CK-MB (CK-2) TNP CK-MB (CK-2) Rel Index TNP Troponin I 0.084 H (0.01-0.034) ng/mL NT-Pro-B Natriuret Pep 451 H (<450) pg/mL Total Protein (6.3-8.2) g/dL Albumin (3.5-5.0) g/dL Globulin (1.7-4.1) g/dL Albumin/Globulin Ratio (1.0-2.8) Lipase 53 (23-300) U/L Procalcitonin < 0.03 (<0.5) ng/mL Chlamy pneumoniae PCR (Not Detect) Adenovirus (PCR) (Not Detect) B. pertussis DNA (PCR) (Not Detecte) B.parapertussis DNA PCR (Not Detecte) Coronavirus OC43 (PCR) (Not Detect) Coronavirus HKU1 (PCR) (Not Detect) Coronavirus 229E (PCR) (Not Detect) SARS-CoV-2 (PCR) Coronavirus NL63 (PCR) (Not Detect) Human Metapneumovir PCR (Not Detect) Influenza Type A (PCR) (Not Detect) Influenza Type B (PCR) (Not Detect) M. pneumoniae (PCR) (Not Detect) Parainfluenza 1 (PCR) (Not Detect) Parainfluenza 2 (PCR) (Not Detect) Parainfluenza 3 (PCR) (Not Detect) Parainfluenza 4 (PCR) (Not Detect) RSV (PCR) (Not Detect) Entero/Rhino (PCR) (Not Detect) 07/01/22 07/01/22 07/01/22 Range/Units 11:27 11:27 11:27 WBC (4.5-11.0) X10^3/uL RBC (4.0-5.2) X10^6/uL Hgb (12.0-16.0) g/dL Hct (36-46) % MCV (80-100) fL MCH (26-34) PG MCHC (30-36) % RDW (11.6-14.8) % Plt Count (150-400) X10^3/uL Neut % (Auto) (50-75) % Lymph % (Auto) (25-40) % Major % (Auto) (3-14) % Eos % (Auto) (2-4) % Baso % (Auto) (0-2) % Neut # (Auto) (3585-6161) /uL Lymph # (Auto) (4072-0835) /uL Major # (Auto) (0-900) /uL Eos # (Auto) (0-450) /uL Baso # (Auto) (0-100) /uL APTT 29 (26-36) SECONDS D-Dimer 1069 H (<500) ng/ml Sodium (137-145) mmol/L Potassium (3.4-5.1) mmol/L Chloride (98-107) mmol/L Carbon Dioxide (22-32) mmol/L BUN (7-17) mg/dL Creatinine (0.52-1.04) mg/dL Estimated GFR (>60) mL/min BUN/Creatinine Ratio (6-22) Glucose (80-110) mg/dL Lactate (0.7-2.1) mmol/L Calcium (8.4-10.2) mg/dL Magnesium (1.6-2.3) mg/dL Total Bilirubin (0.2-1.3) mg/dL AST (14-36) IU/L ALT (<35) IU/L Alkaline Phosphatase (38-126) U/L Total Creatine Kinase (30-135) U/L CK-MB (CK-2) CK-MB (CK-2) Rel Index Troponin I (0.01-0.034) ng/mL NT-Pro-B Natriuret Pep (<450) pg/mL Total Protein (6.3-8.2) g/dL Albumin (3.5-5.0) g/dL Globulin (1.7-4.1) g/dL Albumin/Globulin Ratio (1.0-2.8) Lipase (23-300) U/L Procalcitonin (<0.5) ng/mL Chlamy pneumoniae PCR Not detected (Not Detect) Adenovirus (PCR) Not detected (Not Detect) B. pertussis DNA (PCR) Not detected (Not Detecte) B.parapertussis DNA PCR Not detected (Not Detecte) Coronavirus OC43 (PCR) Not detected (Not Detect) Coronavirus HKU1 (PCR) Not detected (Not Detect) Coronavirus 229E (PCR) Not detected (Not Detect) SARS-CoV-2 (PCR) Not detected Coronavirus NL63 (PCR) Not detected (Not Detect) Human Metapneumovir PCR Not detected (Not Detect) Influenza Type A (PCR) Not detected (Not Detect) Influenza Type B (PCR) Not detected (Not Detect) M. pneumoniae (PCR) Not detected (Not Detect) Parainfluenza 1 (PCR) Not detected (Not Detect) Parainfluenza 2 (PCR) Not detected (Not Detect) Parainfluenza 3 (PCR) Not detected (Not Detect) Parainfluenza 4 (PCR) Not detected (Not Detect) RSV (PCR) Not detected (Not Detect) Entero/Rhino (PCR) Not detected (Not Detect) 07/01/22 07/01/22 07/01/22 Range/Units 13:30 16:16 16:16 WBC 12.3 H D (4.5-11.0) X10^3/uL RBC 4.87 (4.0-5.2) X10^6/uL Hgb 13.8 (12.0-16.0) g/dL Hct 40.6 (36-46) % MCV 83.4 (80-100) fL MCH 28.4 (26-34) PG MCHC 34.0 (30-36) % RDW 13.5 (11.6-14.8) % Plt Count 226 (150-400) X10^3/uL Neut % (Auto) 93.8 H D (50-75) % Lymph % (Auto) 5.0 L (25-40) % Major % (Auto) 1.0 L (3-14) % Eos % (Auto) 0.0 L (2-4) % Baso % (Auto) 0.2 (0-2) % Neut # (Auto) 38117 H (4310-9033) /uL Lymph # (Auto) 600 L (4043-5507) /uL Major # (Auto) 100 (0-900) /uL Eos # (Auto) 0 (0-450) /uL Baso # (Auto) 0 (0-100) /uL APTT (26-36) SECONDS D-Dimer (<500) ng/ml Sodium 137 (137-145) mmol/L Potassium 3.9 (3.4-5.1) mmol/L Chloride 107 (98-107) mmol/L Carbon Dioxide 22 (22-32) mmol/L BUN 21 H (7-17) mg/dL Creatinine 0.72 (0.52-1.04) mg/dL Estimated GFR > 60 (>60) mL/min BUN/Creatinine Ratio 29.2 H (6-22) Glucose 178 H (80-110) mg/dL Lactate (0.7-2.1) mmol/L Calcium 8.7 (8.4-10.2) mg/dL Magnesium (1.6-2.3) mg/dL Total Bilirubin 0.8 (0.2-1.3) mg/dL AST 25 (14-36) IU/L ALT 15 (<35) IU/L Alkaline Phosphatase 69 (38-126) U/L Total Creatine Kinase 68 (30-135) U/L CK-MB (CK-2) TNP CK-MB (CK-2) Rel Index TNP Troponin I 0.693 H* 1.100 H* (0.01-0.034) ng/mL NT-Pro-B Natriuret Pep (<450) pg/mL Total Protein 6.8 (6.3-8.2) g/dL Albumin 3.8 (3.5-5.0) g/dL Globulin 3.0 (1.7-4.1) g/dL Albumin/Globulin Ratio 1.3 (1.0-2.8) Lipase (23-300) U/L Procalcitonin (<0.5) ng/mL Chlamy pneumoniae PCR (Not Detect) Adenovirus (PCR) (Not Detect) B. pertussis DNA (PCR) (Not Detecte) B.parapertussis DNA PCR (Not Detecte) Coronavirus OC43 (PCR) (Not Detect) Coronavirus HKU1 (PCR) (Not Detect) Coronavirus 229E (PCR) (Not Detect) SARS-CoV-2 (PCR) Coronavirus NL63 (PCR) (Not Detect) Human Metapneumovir PCR (Not Detect) Influenza Type A (PCR) (Not Detect) Influenza Type B (PCR) (Not Detect) M. pneumoniae (PCR) (Not Detect) Parainfluenza 1 (PCR) (Not Detect) Parainfluenza 2 (PCR) (Not Detect) Parainfluenza 3 (PCR) (Not Detect) Parainfluenza 4 (PCR) (Not Detect) RSV (PCR) (Not Detect) Entero/Rhino (PCR) (Not Detect) 07/01/22 07/01/22 07/02/22 Range/Units 21:00 21:00 04:35 WBC (4.5-11.0) X10^3/uL RBC (4.0-5.2) X10^6/uL Hgb (12.0-16.0) g/dL Hct (36-46) % MCV (80-100) fL MCH (26-34) PG MCHC (30-36) % RDW (11.6-14.8) % Plt Count (150-400) X10^3/uL Neut % (Auto) (50-75) % Lymph % (Auto) (25-40) % Major % (Auto) (3-14) % Eos % (Auto) (2-4) % Baso % (Auto) (0-2) % Neut # (Auto) (3891-6584) /uL Lymph # (Auto) (1724-2644) /uL Major # (Auto) (0-900) /uL Eos # (Auto) (0-450) /uL Baso # (Auto) (0-100) /uL APTT 126 H* D 84 H* D (26-36) SECONDS D-Dimer (<500) ng/ml Sodium (137-145) mmol/L Potassium (3.4-5.1) mmol/L Chloride (98-107) mmol/L Carbon Dioxide (22-32) mmol/L BUN (7-17) mg/dL Creatinine (0.52-1.04) mg/dL Estimated GFR (>60) mL/min BUN/Creatinine Ratio (6-22) Glucose (80-110) mg/dL Lactate (0.7-2.1) mmol/L Calcium (8.4-10.2) mg/dL Magnesium (1.6-2.3) mg/dL Total Bilirubin (0.2-1.3) mg/dL AST (14-36) IU/L ALT (<35) IU/L Alkaline Phosphatase (38-126) U/L Total Creatine Kinase (30-135) U/L CK-MB (CK-2) CK-MB (CK-2) Rel Index Troponin I 1.200 H* (0.01-0.034) ng/mL NT-Pro-B Natriuret Pep (<450) pg/mL Total Protein (6.3-8.2) g/dL Albumin (3.5-5.0) g/dL Globulin (1.7-4.1) g/dL Albumin/Globulin Ratio (1.0-2.8) Lipase (23-300) U/L Procalcitonin (<0.5) ng/mL Chlamy pneumoniae PCR (Not Detect) Adenovirus (PCR) (Not Detect) B. pertussis DNA (PCR) (Not Detecte) B.parapertussis DNA PCR (Not Detecte) Coronavirus OC43 (PCR) (Not Detect) Coronavirus HKU1 (PCR) (Not Detect) Coronavirus 229E (PCR) (Not Detect) SARS-CoV-2 (PCR) Coronavirus NL63 (PCR) (Not Detect) Human Metapneumovir PCR (Not Detect) Influenza Type A (PCR) (Not Detect) Influenza Type B (PCR) (Not Detect) M. pneumoniae (PCR) (Not Detect) Parainfluenza 1 (PCR) (Not Detect) Parainfluenza 2 (PCR) (Not Detect) Parainfluenza 3 (PCR) (Not Detect) Parainfluenza 4 (PCR) (Not Detect) RSV (PCR) (Not Detect) Entero/Rhino (PCR) (Not Detect) 07/02/22 07/02/22 07/02/22 Range/Units 11:25 11:25 11:25 WBC 16.3 H (4.5-11.0) X10^3/uL RBC 4.71 (4.0-5.2) X10^6/uL Hgb 13.4 (12.0-16.0) g/dL Hct 39.2 (36-46) % MCV 83.3 (80-100) fL MCH 28.4 (26-34) PG MCHC 34.2 (30-36) % RDW 13.6 (11.6-14.8) % Plt Count 236 (150-400) X10^3/uL Neut % (Auto) 80.1 H (50-75) % Lymph % (Auto) 11.8 L (25-40) % Major % (Auto) 7.6 (3-14) % Eos % (Auto) 0.2 L (2-4) % Baso % (Auto) 0.3 (0-2) % Neut # (Auto) 05967 H (9809-1863) /uL Lymph # (Auto) 1900 (3397-1349) /uL Major # (Auto) 1200 H (0-900) /uL Eos # (Auto) 0 (0-450) /uL Baso # (Auto) 100 (0-100) /uL APTT (26-36) SECONDS D-Dimer (<500) ng/ml Sodium 138 (137-145) mmol/L Potassium 4.1 (3.4-5.1) mmol/L Chloride 107 (98-107) mmol/L Carbon Dioxide 26 (22-32) mmol/L BUN 21 H (7-17) mg/dL Creatinine 0.75 (0.52-1.04) mg/dL Estimated GFR > 60 (>60) mL/min BUN/Creatinine Ratio 28.0 H (6-22) Glucose 101 (80-110) mg/dL Lactate (0.7-2.1) mmol/L Calcium 9.0 (8.4-10.2) mg/dL Magnesium (1.6-2.3) mg/dL Total Bilirubin 0.7 (0.2-1.3) mg/dL AST 26 (14-36) IU/L ALT 15 (<35) IU/L Alkaline Phosphatase 61 (38-126) U/L Total Creatine Kinase (30-135) U/L CK-MB (CK-2) CK-MB (CK-2) Rel Index Troponin I 0.812 H* (0.01-0.034) ng/mL NT-Pro-B Natriuret Pep (<450) pg/mL Total Protein 6.1 L (6.3-8.2) g/dL Albumin 3.6 (3.5-5.0) g/dL Globulin 2.5 (1.7-4.1) g/dL Albumin/Globulin Ratio 1.4 (1.0-2.8) Lipase (23-300) U/L Procalcitonin (<0.5) ng/mL Chlamy pneumoniae PCR (Not Detect) Adenovirus (PCR) (Not Detect) B. pertussis DNA (PCR) (Not Detecte) B.parapertussis DNA PCR (Not Detecte) Coronavirus OC43 (PCR) (Not Detect) Coronavirus HKU1 (PCR) (Not Detect) Coronavirus 229E (PCR) (Not Detect) SARS-CoV-2 (PCR) Coronavirus NL63 (PCR) (Not Detect) Human Metapneumovir PCR (Not Detect) Influenza Type A (PCR) (Not Detect) Influenza Type B (PCR) (Not Detect) M. pneumoniae (PCR) (Not Detect) Parainfluenza 1 (PCR) (Not Detect) Parainfluenza 2 (PCR) (Not Detect) Parainfluenza 3 (PCR) (Not Detect) Parainfluenza 4 (PCR) (Not Detect) RSV (PCR) (Not Detect) Entero/Rhino (PCR) (Not Detect) 07/02/22 07/02/22 07/02/22 Range/Units 11:25 11:25 17:25 WBC (4.5-11.0) X10^3/uL RBC (4.0-5.2) X10^6/uL Hgb (12.0-16.0) g/dL Hct (36-46) % MCV (80-100) fL MCH (26-34) PG MCHC (30-36) % RDW (11.6-14.8) % Plt Count (150-400) X10^3/uL Neut % (Auto) (50-75) % Lymph % (Auto) (25-40) % Major % (Auto) (3-14) % Eos % (Auto) (2-4) % Baso % (Auto) (0-2) % Neut # (Auto) (6301-5271) /uL Lymph # (Auto) (1314-4068) /uL Major # (Auto) (0-900) /uL Eos # (Auto) (0-450) /uL Baso # (Auto) (0-100) /uL APTT 60 H D 58 H (26-36) SECONDS D-Dimer (<500) ng/ml Sodium (137-145) mmol/L Potassium (3.4-5.1) mmol/L Chloride (98-107) mmol/L Carbon Dioxide (22-32) mmol/L BUN (7-17) mg/dL Creatinine (0.52-1.04) mg/dL Estimated GFR (>60) mL/min BUN/Creatinine Ratio (6-22) Glucose (80-110) mg/dL Lactate (0.7-2.1) mmol/L Calcium (8.4-10.2) mg/dL Magnesium 2.0 (1.6-2.3) mg/dL Total Bilirubin (0.2-1.3) mg/dL AST (14-36) IU/L ALT (<35) IU/L Alkaline Phosphatase (38-126) U/L Total Creatine Kinase (30-135) U/L CK-MB (CK-2) CK-MB (CK-2) Rel Index Troponin I (0.01-0.034) ng/mL NT-Pro-B Natriuret Pep (<450) pg/mL Total Protein (6.3-8.2) g/dL Albumin (3.5-5.0) g/dL Globulin (1.7-4.1) g/dL Albumin/Globulin Ratio (1.0-2.8) Lipase (23-300) U/L Procalcitonin (<0.5) ng/mL Chlamy pneumoniae PCR (Not Detect) Adenovirus (PCR) (Not Detect) B. pertussis DNA (PCR) (Not Detecte) B.parapertussis DNA PCR (Not Detecte) Coronavirus OC43 (PCR) (Not Detect) Coronavirus HKU1 (PCR) (Not Detect) Coronavirus 229E (PCR) (Not Detect) SARS-CoV-2 (PCR) Coronavirus NL63 (PCR) (Not Detect) Human Metapneumovir PCR (Not Detect) Influenza Type A (PCR) (Not Detect) Influenza Type B (PCR) (Not Detect) M. pneumoniae (PCR) (Not Detect) Parainfluenza 1 (PCR) (Not Detect) Parainfluenza 2 (PCR) (Not Detect) Parainfluenza 3 (PCR) (Not Detect) Parainfluenza 4 (PCR) (Not Detect) RSV (PCR) (Not Detect) Entero/Rhino (PCR) (Not Detect) Imaging Data Chest x-ray: Radiologist's Impression: XRay Report Signed Patient: Lisa Santacruz MR#: [id number] : 1945 Acct:[id number] Age/Sex: 77 / F Date of Service: 07/01/22 Loc: Accession Number: [id number] ?? Procedure: XR chest 1V Ordering Provider: Mary Montejo D.O. PROCEDURE:? XR CHEST 1V ? INDICATIONS:? short of breath ? TECHNIQUE:? One view of the chest was acquired.? ? COMPARISON:? [facility], , XR CHEST 2V, 07/14/2020, 10:04. ? FINDINGS:? ? Surgical changes and devices:? None.? ? Lungs and pleura:? On this semiupright portable chest examination, no large pneumothorax or large pleural effusions are seen.? No focal infiltrates are seen.? ? Mediastinum:? The cardiac contours are within normal limits. The aorta demonstrates calcification and tortuosity. ? Bones and chest wall:? No suspicious bony lesions.? Age-appropriate bony degenerative changes are seen.? Overlying soft tissues appear unremarkable.? ? ? IMPRESSION:? ? Limited portable chest examination, without a significant cardiopulmonary abnormality identified.? ? ? Dictated by: Joe Schneider M.D. on 07/01/2022 at 10:56 ? ? CT scan - chest: Radiologist's Impression: Signed Patient: Lisa Santacruz MR#: [id number] : 1945 Acct:[id number] Age/Sex: 77 / F Date of Service: 07/01/22 Loc: ED Accession Number: [id number] ?? Procedure: CT angio chest PE protocol Ordering Provider: Mary Montejo D.O. PROCEDURE:? CT ANGIO CHEST PE PROTOCOL ? INDICATIONS:? hypoxia + dimer ? TECHNIQUE:? After the administration of intravenous contrast, 2 mm thick sections acquired from the pulmonary apices to the posterior costophrenic angles.? 3-dimensional maximum intensity projection (MIP) coronal and sagittal reformats were then acquired through the thorax.? For radiation dose reduction, the following was used:? automated exposure cont rol, adjustment of mA and/or kV according to patient size.? ? COMPARISON:? None. ? FINDINGS:? Image quality:? Excellent.? ? Pulmonary arteries:? Pulmonary arteries are normal in size, and demonstrate no intraluminal filling defects to suggest central pulmonary embolism.? ? Lungs and pleura:? Lungs are clear.? No pleural effusions or pneumothorax.? Central and peripheral airways are patent.? ? Mediastinum:? Heart size is mildly enlarged., without pericardial effusion.? No mediastinal or hilar adenopathy.? Mild aneurysmal dilatation of the ascending aorta, measuring 4.3 cm.? No dissection.? Classic three-vessel arch anatomy.? Great vessel origins are widely patent.? SMA and celiac are widely patent.? Esophagus is normal in caliber, without hiatal hernia.? ? Bones and chest wall:? No suspicious bony lesions.? Ribs and thoracic spine appear intact throughout.? Thyroid gland is unremarkable.? No axillary or supraclavicular adenopathy.? ? Abdomen:? Visualized upper abdominal solid organs appear normal in the early arterial phase of enhancement.? ? IMPRESSION:? ? 1. No evidence acute pulmonary emboli. ? 2. No evidence acute pulmonary process. ? 3. Mild cardiomegaly. ? 4. Mild aneurysmal dilatation of the ascending aorta measuring 4.3 cm.? ? ? Dictated by: Mu Giron M.D. on 07/01/2022 at 14:19 ? ? ECG Data Interpretation: Normal sinus rhythm rate 66 FL interval 178 QRS [address] depression V4 V5 no ST elevation no T-wave inversion no priors to compare EKG 2. Sinus rhythm no real ST changes no Q-waves EKG 3. Sinus rhythm no worsening ST depression T-wave inversion or ST elevations MDM Narrative Medical decision making narrative: Patient initially presents with wheezing and tachypnea. She is given a DuoNeb which seems to improved right away. She is also given some Solu-Medrol. BNP is negative however her 1st troponin is indeterminate. Repeat troponins rise into the positive range. She continues to deny any sort of chest discomfort. Her breathing seems to have completely resolved. Her D-dimer is mildly elevated her CT chest does not show any pulmonary embolism or pulmonary edema. Respiratory panel is negative procalcitonin is negative this is likely to be infectious or stress and reduced she certainly does not seem to be septic. Symptoms do seem a bit odd to have coughing and elevated troponins and no EKG changes she does certainly have risk factors for coronary artery disease including hypertension and hyperlipidemia female and age signed out to dr. srivastava 07/01/22 Hillary: Patient signed out to myself for the overnight shift. Patient's troponin has been trending upwards. She is been asymptomatic so far overnight, patient received her medications during the daytime, EKOS ordered for the mo rning. She is on heparin drip. Patient has aspirin, metoprolol, atorvastatin levothyroxine ordered. Patient signed back out to Dr. Montejo while continuing to search for bed availability and facility with Cardiology and cardiac catheterization capabilities. So far no beds available. 07/02/22 830 am Nikia: Patient has no new issues overnight. She did require about 2 L of O2 while sleeping but is awake alert and on room air now. She really has absolutely no symptoms. She has no cough no chest pain no shortness of breath. Troponin last night was at 1.2. Morning labs are pending. She had an echocardiogram this morning. Still trying to transfer her to other facilities with Cardiology. GENERAL: Well-appearing 77-year-old female CARDIOVASCULAR: peripheral pulses in tact, cap refill <2 sec RESPIRATORY: No respiratory distress, speaks in full sentences without difficulty EXTREMITIES: Normal range of motion, no clubbing or edema. Neurovascularly intact NEUROLOGICAL: Cranial nerves II through XII grossly intact. Normal gait and speech. SKIN: Warm, dry, no petechiae, no rashes or lesions. A/P 1. NSTEMI -Heparin, asa, BB, statin -Serial labs -Check echo -Transfer to higher level of care with Cardiology 2. Hypertension -continue daily metoprolol 3. Hyperlipidemia -continue atorvastatin 4. Hypothyroid -continue levothyroxine Will call back [facility], on list at [facility] Plan to transfer patient to other hospitals is failing miserably due to critical bed shortage. Patient remains chest pain free. She has not had any sort of coughing spells while in the emergency department. Echocardiogram does not show any wall motion abnormality. 1720 Dr. Perez cardiology has been updated on patient's symptoms and test results. At this time he does not think that patient needs to be transferred. Recommends nuclear stress test here. Dr. Monroe, admit patient to hospital <Rosy Srivastava DO - Last Filed: 07/02/22 23:17> Lab Data Labs: Lab Results 07/01/22 07/01/22 07/01/22 Range/Units 11:15 11:27 11:27 WBC 8.0 (4.5-11.0) X10^3/uL RBC 4.82 (4.0-5.2) X10^6/uL Hgb 13.8 (12.0-16.0) g/dL Hct 40.4 (36-46) % MCV 83.8 (80-100) fL MCH 28.6 (26-34) PG MCHC 34.1 (30-36) % RDW 13.8 (11.6-14.8) % Plt Count 226 (150-400) X10^3/uL Neut % (Auto) 73.1 (50-75) % Lymph % (Auto) 17.1 L (25-40) % Major % (Auto) 6.4 (3-14) % Eos % (Auto) 2.9 (2-4) % Baso % (Auto) 0.5 (0-2) % Neut # (Auto) 5800 (4573-4165) /uL Lymph # (Auto) 1400 (7466-6440) /uL Major # (Auto) 500 (0-900) /uL Eos # (Auto) 200 (0-450) /uL Baso # (Auto) 0 (0-100) /uL APTT (26-36) SECONDS D-Dimer (<500) ng/ml Sodium 141 (137-145) mmol/L Potassium 4.0 (3.4-5.1) mmol/L Chloride 109 H (98-107) mmol/L Carbon Dioxide 23 (22-32) mmol/L BUN 24 H (7-17) mg/dL Creatinine 0.86 (0.52-1.04) mg/dL Estimated GFR > 60 (>60) mL/min BUN/Creatinine Ratio 27.9 H (6-22) Glucose 127 H (80-110) mg/dL Lactate (0.7-2.1) mmol/L Calcium 8.6 (8.4-10.2) mg/dL Magnesium (1.6-2.3) mg/dL Total Bilirubin 0.7 (0.2-1.3) mg/dL AST 24 (14-36) IU/L ALT 14 (<35) IU/L Alkaline Phosphatase 59 (38-126) U/L Total Creatine Kinase (30-135) U/L CK-MB (CK-2) CK-MB (CK-2) Rel Index Troponin I (0.01-0.034) ng/mL NT-Pro-B Natriuret Pep (<450) pg/mL Total Protein 6.6 (6.3-8.2) g/dL Albumin 3.7 (3.5-5.0) g/dL Globulin 2.9 (1.7-4.1) g/dL Albumin/Globulin Ratio 1.3 (1.0-2.8) Lipase (23-300) U/L Procalcitonin (<0.5) ng/mL Chlamy pneumoniae PCR (Not Detect) Adenovirus (PCR) (Not Detect) B. pertussis DNA (PCR) (Not Detecte) B.parapertussis DNA PCR (Not Detecte) Coronavirus OC43 (PCR) (Not Detect) Coronavirus HKU1 (PCR) (Not Detect) Coronavirus 229E (PCR) (Not Detect) SARS-CoV-2 (PCR) Cancelled Coronavirus NL63 (PCR) (Not Detect) Human Metapneumovir PCR (Not Detect) Influenza Type A (PCR) (Not Detect) Influenza Type B (PCR) (Not Detect) M. pneumoniae (PCR) (Not Detect) Parainfluenza 1 (PCR) (Not Detect) Parainfluenza 2 (PCR) (Not Detect) Parainfluenza 3 (PCR) (Not Detect) Parainfluenza 4 (PCR) (Not Detect) RSV (PCR) (Not Detect) Entero/Rhino (PCR) (Not Detect) 07/01/22 07/01/22 07/01/22 Range/Units 11:27 11:27 11:27 WBC (4.5-11.0) X10^3/uL RBC (4.0-5.2) X10^6/uL Hgb (12.0-16.0) g/dL Hct (36-46) % MCV (80-100) fL MCH (26-34) PG MCHC (30-36) % RDW (11.6-14.8) % Plt Count (150-400) X10^3/uL Neut % (Auto) (50-75) % Lymph % (Auto) (25-40) % Major % (Auto) (3-14) % Eos % (Auto) (2-4) % Baso % (Auto) (0-2) % Neut # (Auto) (4423-6173) /uL Lymph # (Auto) (3996-1498) /uL Major # (Auto) (0-900) /uL Eos # (Auto) (0-450) /uL Baso # (Auto) (0-100) /uL APTT (26-36) SECONDS D-Dimer (<500) ng/ml Sodium (137-145) mmol/L Potassium (3.4-5.1) mmol/L Chloride (98-107) mmol/L Carbon Dioxide (22-32) mmol/L BUN (7-17) mg/dL Creatinine (0.52-1.04) mg/dL Estimated GFR (>60) mL/min BUN/Creatinine Ratio (6-22) Glucose (80-110) mg/dL Lactate 1.4 (0.7-2.1) mmol/L Calcium (8.4-10.2) mg/dL Magnesium (1.6-2.3) mg/dL Total Bilirubin (0.2-1.3) mg/dL AST (14-36) IU/L ALT (<35) IU/L Alkaline Phosphatase (38-126) U/L Total Creatine Kinase 52 (30-135) U/L CK-MB (CK-2) TNP CK-MB (CK-2) Rel Index TNP Troponin I 0.084 H (0.01-0.034) ng/mL NT-Pro-B Natriuret Pep 451 H (<450) pg/mL Total Protein (6.3-8.2) g/dL Albumin (3.5-5.0) g/dL Globulin (1.7-4.1) g/dL Albumin/Globulin Ratio (1.0-2.8) Lipase 53 (23-300) U/L Procalcitonin < 0.03 (<0.5) ng/mL Chlamy pneumoniae PCR (Not Detect) Adenovirus (PCR) (Not Detect) B. pertussis DNA (PCR) (Not Detecte) B.parapertussis DNA PCR (Not Detecte) Coronavirus OC43 (PCR) (Not Detect) Coronavirus HKU1 (PCR) (Not Detect) Coronavirus 229E (PCR) (Not Detect) SARS-CoV-2 (PCR) Coronavirus NL63 (PCR) (Not Detect) Human Metapneumovir PCR (Not Detect) Influenza Type A (PCR) (Not Detect) Influenza Type B (PCR) (Not Detect) M. pneumoniae (PCR) (Not Detect) Parainfluenza 1 (PCR) (Not Detect) Parainfluenza 2 (PCR) (Not Detect) Parainfluenza 3 (PCR) (Not Detect) Parainfluenza 4 (PCR) (Not Detect) RSV (PCR) (Not Detect) Entero/Rhino (PCR) (Not Detect) 07/01/22 07/01/22 07/01/22 Range/Units 11:27 11:27 11:27 WBC (4.5-11.0) X10^3/uL RBC (4.0-5.2) X10^6/uL Hgb (12.0-16.0) g/dL Hct (36-46) % MCV (80-100) fL MCH (26-34) PG MCHC (30-36) % RDW (11.6-14.8) % Plt Count (150-400) X10^3/uL Neut % (Auto) (50-75) % Lymph % (Auto) (25-40) % Major % (Auto) (3-14) % Eos % (Auto) (2-4) % Baso % (Auto) (0-2) % Neut # (Auto) (8202-2829) /uL Lymph # (Auto) (2403-1443) /uL Major # (Auto) (0-900) /uL Eos # (Auto) (0-450) /uL Baso # (Auto) (0-100) /uL APTT 29 (26-36) SECONDS D-Dimer 1069 H (<500) ng/ml Sodium (137-145) mmol/L Potassium (3.4-5.1) mmol/L Chloride (98-107) mmol/L Carbon Dioxide (22-32) mmol/L BUN (7-17) mg/dL Creatinine (0.52-1.04) mg/dL Estimated GFR (>60) mL/min BUN/Creatinine Ratio (6-22) Glucose (80-110) mg/dL Lactate (0.7-2.1) mmol/L Calcium (8.4-10.2) mg/dL Magnesium (1.6-2.3) mg/dL Total Bilirubin (0.2-1.3) mg/dL AST (14-36) IU/L ALT (<35) IU/L Alkaline Phosphatase (38-126) U/L Total Creatine Kinase (30-135) U/L CK-MB (CK-2) CK-MB (CK-2) Rel Index Troponin I (0.01-0.034) ng/mL NT-Pro-B Natriuret Pep (<450) pg/mL Total Protein (6.3-8.2) g/dL Albumin (3.5-5.0) g/dL Globulin (1.7-4.1) g/dL Albumin/Globulin Ratio (1.0-2.8) Lipase (23-300) U/L Procalcitonin (<0.5) ng/mL Chlamy pneumoniae PCR Not detected (Not Detect) Adenovirus (PCR) Not detected (Not Detect) B. pertussis DNA (PCR) Not detected (Not Detecte) B.parapertussis DNA PCR Not detected (Not Detecte) Coronavirus OC43 (PCR) Not detected (Not Detect) Coronavirus HKU1 (PCR) Not detected (Not Detect) Coronavirus 229E (PCR) Not detected (Not Detect) SARS-CoV-2 (PCR) Not detected Coronavirus NL63 (PCR) Not detected (Not Detect) Human Metapneumovir PCR Not detected (Not Detect) Influenza Type A (PCR) Not detected (Not Detect) Influenza Type B (PCR) Not detected (Not Detect) M. pneumoniae (PCR) Not detected (Not Detect) Parainfluenza 1 (PCR) Not detected (Not Detect) Parainfluenza 2 (PCR) Not detected (Not Detect) Parainfluenza 3 (PCR) Not detected (Not Detect) Parainfluenza 4 (PCR) Not detected (Not Detect) RSV (PCR) Not detected (Not Detect) Entero/Rhino (PCR) Not detected (Not Detect) 07/01/22 07/01/22 07/01/22 Range/Units 13:30 16:16 16:16 WBC 12.3 H D (4.5-11.0) X10^3/uL RBC 4.87 (4.0-5.2) X10^6/uL Hgb 13.8 (12.0-16.0) g/dL Hct 40.6 (36-46) % MCV 83.4 (80-100) fL MCH 28.4 (26-34) PG MCHC 34.0 (30-36) % RDW 13.5 (11.6-14.8) % Plt Count 226 (150-400) X10^3/uL Neut % (Auto) 93.8 H D (50-75) % Lymph % (Auto) 5.0 L (25-40) % Major % (Auto) 1.0 L (3-14) % Eos % (Auto) 0.0 L (2-4) % Baso % (Auto) 0.2 (0-2) % Neut # (Auto) 93215 H (1341-8837) /uL Lymph # (Auto) 600 L (8565-0013) /uL Major # (Auto) 100 (0-900) /uL Eos # (Auto) 0 (0-450) /uL Baso # (Auto) 0 (0-100) /uL APTT (26-36) SECONDS D-Dimer (<500) ng/ml Sodium 137 (137-145) mmol/L Potassium 3.9 (3.4-5.1) mmol/L Chloride 107 (98-107) mmol/L Carbon Dioxide 22 (22-32) mmol/L BUN 21 H (7-17) mg/dL Creatinine 0.72 (0.52-1.04) mg/dL Estimated GFR > 60 (>60) mL/min BUN/Creatinine Ratio 29.2 H (6-22) Glucose 178 H (80-110) mg/dL Lactate (0.7-2.1) mmol/L Calcium 8.7 (8.4-10.2) mg/dL Magnesium (1.6-2.3) mg/dL Total Bilirubin 0.8 (0.2-1.3) mg/dL AST 25 (14-36) IU/L ALT 15 (<35) IU/L Alkaline Phosphatase 69 (38-126) U/L Total Creatine Kinase 68 (30-135) U/L CK-MB (CK-2) TNP CK-MB (CK-2) Rel Index TNP Troponin I 0.693 H* 1.100 H* (0.01-0.034) ng/mL NT-Pro-B Natriuret Pep (<450) pg/mL Total Protein 6.8 (6.3-8.2) g/dL Albumin 3.8 (3.5-5.0) g/dL Globulin 3.0 (1.7-4.1) g/dL Albumin/Globulin Ratio 1.3 (1.0-2.8) Lipase (23-300) U/L Procalcitonin (<0.5) ng/mL Chlamy pneumoniae PCR (Not Detect) Adenovirus (PCR) (Not Detect) B. pertussis DNA (PCR) (Not Detecte) B.parapertussis DNA PCR (Not Detecte) Coronavirus OC43 (PCR) (Not Detect) Coronavirus HKU1 (PCR) (Not Detect) Coronavirus 229E (PCR) (Not Detect) SARS-CoV-2 (PCR) Coronavirus NL63 (PCR) (Not Detect) Human Metapneumovir PCR (Not Detect) Influenza Type A (PCR) (Not Detect) Influenza Type B (PCR) (Not Detect) M. pneumoniae (PCR) (Not Detect) Parainfluenza 1 (PCR) (Not Detect) Parainfluenza 2 (PCR) (Not Detect) Parainfluenza 3 (PCR) (Not Detect) Parainfluenza 4 (PCR) (Not Detect) RSV (PCR) (Not Detect) Entero/Rhino (PCR) (Not Detect) 07/01/22 07/01/22 07/02/22 Range/Units 21:00 21:00 04:35 WBC (4.5-11.0) X10^3/uL RBC (4.0-5.2) X10^6/uL Hgb (12.0-16.0) g/dL Hct (36-46) % MCV (80-100) fL MCH (26-34) PG MCHC (30-36) % RDW (11.6-14.8) % Plt Count (150-400) X10^3/uL Neut % (Auto) (50-75) % Lymph % (Auto) (25-40) % Major % (Auto) (3-14) % Eos % (Auto) (2-4) % Baso % (Auto) (0-2) % Neut # (Auto) (4668-6297) /uL Lymph # (Auto) (3493-6897) /uL Major # (Auto) (0-900) /uL Eos # (Auto) (0-450) /uL Baso # (Auto) (0-100) /uL APTT 126 H* D 84 H* D (26-36) SECONDS D-Dimer (<500) ng/ml Sodium (137-145) mmol/L Potassium (3.4-5.1) mmol/L Chloride (98-107) mmol/L Carbon Dioxide (22-32) mmol/L BUN (7-17) mg/dL Creatinine (0.52-1.04) mg/dL Estimated GFR (>60) mL/min BUN/Creatinine Ratio (6-22) Glucose (80-110) mg/dL Lactate (0.7-2.1) mmol/L Calcium (8.4-10.2) mg/dL Magnesium (1.6-2.3) mg/dL Total Bilirubin (0.2-1.3) mg/dL AST (14-36) IU/L ALT (<35) IU/L Alkaline Phosphatase (38-126) U/L Total Creatine Kinase (30-135) U/L CK-MB (CK-2) CK-MB (CK-2) Rel Index Troponin I 1.200 H* (0.01-0.034) ng/mL NT-Pro-B Natriuret Pep (<450) pg/mL Total Protein (6.3-8.2) g/dL Albumin (3.5-5.0) g/dL Globulin (1.7-4.1) g/dL Albumin/Globulin Ratio (1.0-2.8) Lipase (23-300) U/L Procalcitonin (<0.5) ng/mL Chlamy pneumoniae PCR (Not Detect) Adenovirus (PCR) (Not Detect) B. pertussis DNA (PCR) (Not Detecte) B.parapertussis DNA PCR (Not Detecte) Coronavirus OC43 (PCR) (Not Detect) Coronavirus HKU1 (PCR) (Not Detect) Coronavirus 229E (PCR) (Not Detect) SARS-CoV-2 (PCR) Coronavirus NL63 (PCR) (Not Detect) Human Metapneumovir PCR (Not Detect) Influenza Type A (PCR) (Not Detect) Influenza Type B (PCR) (Not Detect) M. pneumoniae (PCR) (Not Detect) Parainfluenza 1 (PCR) (Not Detect) Parainfluenza 2 (PCR) (Not Detect) Parainfluenza 3 (PCR) (Not Detect) Parainfluenza 4 (PCR) (Not Detect) RSV (PCR) (Not Detect) Entero/Rhino (PCR) (Not Detect) 07/02/22 07/02/22 07/02/22 Range/Units 11:25 11:25 11:25 WBC 16.3 H (4.5-11.0) X10^3/uL RBC 4.71 (4.0-5.2) X10^6/uL Hgb 13.4 (12.0-16.0) g/dL Hct 39.2 (36-46) % MCV 83.3 (80-100) fL MCH 28.4 (26-34) PG MCHC 34.2 (30-36) % RDW 13.6 (11.6-14.8) % Plt Count 236 (150-400) X10^3/uL Neut % (Auto) 80.1 H (50-75) % Lymph % (Auto) 11.8 L (25-40) % Major % (Auto) 7.6 (3-14) % Eos % (Auto) 0.2 L (2-4) % Baso % (Auto) 0.3 (0-2) % Neut # (Auto) 21766 H (1638-9214) /uL Lymph # (Auto) 1900 (2370-2809) /uL Major # (Auto) 1200 H (0-900) /uL Eos # (Auto) 0 (0-450) /uL Baso # (Auto) 100 (0-100) /uL APTT (26-36) SECONDS D-Dimer (<500) ng/ml Sodium 138 (137-145) mmol/L Potassium 4.1 (3.4-5.1) mmol/L Chloride 107 (98-107) mmol/L Carbon Dioxide 26 (22-32) mmol/L BUN 21 H (7-17) mg/dL Creatinine 0.75 (0.52-1.04) mg/dL Estimated GFR > 60 (>60) mL/min BUN/Creatinine Ratio 28.0 H (6-22) Glucose 101 (80-110) mg/dL Lactate (0.7-2.1) mmol/L Calcium 9.0 (8.4-10.2) mg/dL Magnesium (1.6-2.3) mg/dL Total Bilirubin 0.7 (0.2-1.3) mg/dL AST 26 (14-36) IU/L ALT 15 (<35) IU/L Alkaline Phosphatase 61 (38-126) U/L Total Creatine Kinase (30-135) U/L CK-MB (CK-2) CK-MB (CK-2) Rel Index Troponin I 0.812 H* (0.01-0.034) ng/mL NT-Pro-B Natriuret Pep (<450) pg/mL Total Protein 6.1 L (6.3-8.2) g/dL Albumin 3.6 (3.5-5.0) g/dL Globulin 2.5 (1.7-4.1) g/dL Albumin/Globulin Ratio 1.4 (1.0-2.8) Lipase (23-300) U/L Procalcitonin (<0.5) ng/mL Chlamy pneumoniae PCR (Not Detect) Adenovirus (PCR) (Not Detect) B. pertussis DNA (PCR) (Not Detecte) B.parapertussis DNA PCR (Not Detecte) Coronavirus OC43 (PCR) (Not Detect) Coronavirus HKU1 (PCR) (Not Detect) Coronavirus 229E (PCR) (Not Detect) SARS-CoV-2 (PCR) Coronavirus NL63 (PCR) (Not Detect) Human Metapneumovir PCR (Not Detect) Influenza Type A (PCR) (Not Detect) Influenza Type B (PCR) (Not Detect) M. pneumoniae (PCR) (Not Detect) Parainfluenza 1 (PCR) (Not Detect) Parainfluenza 2 (PCR) (Not Detect) Parainfluenza 3 (PCR) (Not Detect) Parainfluenza 4 (PCR) (Not Detect) RSV (PCR) (Not Detect) Entero/Rhino (PCR) (Not Detect) 07/02/22 07/02/22 07/02/22 Range/Units 11:25 11:25 17:25 WBC (4.5-11.0) X10^3/uL RBC (4.0-5.2) X10^6/uL Hgb (12.0-16.0) g/dL Hct (36-46) % MCV (80-100) fL MCH (26-34) PG MCHC (30-36) % RDW (11.6-14.8) % Plt Count (150-400) X10^3/uL Neut % (Auto) (50-75) % Lymph % (Auto) (25-40) % Major % (Auto) (3-14) % Eos % (Auto) (2-4) % Baso % (Auto) (0-2) % Neut # (Auto) (1321-7840) /uL Lymph # (Auto) (6718-2884) /uL Major # (Auto) (0-900) /uL Eos # (Auto) (0-450) /uL Baso # (Auto) (0-100) /uL APTT 60 H D 58 H (26-36) SECONDS D-Dimer (<500) ng/ml Sodium (137-145) mmol/L Potassium (3.4-5.1) mmol/L Chloride (98-107) mmol/L Carbon Dioxide (22-32) mmol/L BUN (7-17) mg/dL Creatinine (0.52-1.04) mg/dL Estimated GFR (>60) mL/min BUN/Creatinine Ratio (6-22) Glucose (80-110) mg/dL Lactate (0.7-2.1) mmol/L Calcium (8.4-10.2) mg/dL Magnesium 2.0 (1.6-2.3) mg/dL Total Bilirubin (0.2-1.3) mg/dL AST (14-36) IU/L ALT (<35) IU/L Alkaline Phosphatase (38-126) U/L Total Creatine Kinase (30-135) U/L CK-MB (CK-2) CK-MB (CK-2) Rel Index Troponin I (0.01-0.034) ng/mL NT-Pro-B Natriuret Pep (<450) pg/mL Total Protein (6.3-8.2) g/dL Albumin (3.5-5.0) g/dL Globulin (1.7-4.1) g/dL Albumin/Globulin Ratio (1.0-2.8) Lipase (23-300) U/L Procalcitonin (<0.5) ng/mL Chlamy pneumoniae PCR (Not Detect) Adenovirus (PCR) (Not Detect) B. pertussis DNA (PCR) (Not Detecte) B.parapertussis DNA PCR (Not Detecte) Coronavirus OC43 (PCR) (Not Detect) Coronavirus HKU1 (PCR) (Not Detect) Coronavirus 229E (PCR) (Not Detect) SARS-CoV-2 (PCR) Coronavirus NL63 (PCR) (Not Detect) Human Metapneumovir PCR (Not Detect) Influenza Type A (PCR) (Not Detect) Influenza Type B (PCR) (Not Detect) M. pneumoniae (PCR) (Not Detect) Parainfluenza 1 (PCR) (Not Detect) Parainfluenza 2 (PCR) (Not Detect) Parainfluenza 3 (PCR) (Not Detect) Parainfluenza 4 (PCR) (Not Detect) RSV (PCR) (Not Detect) Entero/Rhino (PCR) (Not Detect) MDM Narrative Medical decision making narrative: Patient initially presents with wheezing and tachypnea. She is given a DuoNeb which seems to improved right away. She is also given some Solu-Medrol. BNP is negative however her 1st troponin is indeterminate. Repeat troponins rise into the positive range. She continues to deny any sort of chest discomfort. Her breathing seems to have completely resolved. Her D-dimer is mildly elevated her CT chest does not show any pulmonary embolism or pulmonary edema. Respiratory panel is negative procalcitonin is negative this is likely to be infectious or stress and reduced she certainly does not seem to be septic. Symptoms do seem a bit odd to have coughing and elevated troponins and no EKG changes she does certainly have risk factors for coronary artery disease including hypertension and hyperlipidemia female and age signed out to dr. srivastava 07/01/22 Mank: Patient signed out to myself for the overnight shift. Patient's troponin has been trending upwards. She is been asymptomatic so far overnight, patient received her medications during the daytime, EKOS ordered for the morning. She is on heparin drip. Patient has aspirin, metoprolol, atorvastatin levothyroxine ordered. Patient signed back out to Dr. Montejo while continuing to search for bed availability and facility with Cardiology and cardiac catheterization capabilities. So far no beds available. Discharge Plan Departure Patient Disposition: Admitted As Inpatient Clinical Impression: Acute non-ST elevation myocardial infarction (NSTEMI) Admit Date/Time: 07/02/22 17:40 Admit Provider: Ronnie Monroe
[2022-07-01] MEDS: ALBUTEROL/IPRATROPIUM 3 ML AMPUL INH (11:25)
[2022-07-01 11:42] LABS: Add Manual Diff / Slide Review NO; Basophils Absolute Auto 0 /uL (0-100); Basophils Percent Auto 0.5 % (0-2); Eosinophils Absolute Auto 200 /uL (0-450); Eosinophils Percent Auto 2.9 % (2-4); Hematocrit 40.4 % (36-46); Hemoglobin 13.8 g/dL (12.0-16.0); Lymphocytes Absolute Auto 1400 /uL (1100-4500); Lymphocytes Percent Auto 17.1 % (25-40); Mean Corpuscular HGB Conc 34.1 % (30-36); Mean Corpuscular Hemoglobin 28.6 PG (26-34); Mean Corpuscular Volume 83.8 fL (80-100); Monocytes Absolute Auto 500 /uL (0-900); Monocytes Percent Auto 6.4 % (3-14); Neutrophils Absolute Auto 5800 /uL (1500-7000); Neutrophils Percent Auto 73.1 % (50-75); Platelet Count 226 X10^3/uL (150-400); Red Blood Cell Count 4.82 X10^6/uL (4.0-5.2); Red Cell Distribution Width 13.8 % (11.6-14.8)
[2022-07-01 11:54] LABS: Creatine Kinase 52 U/L (30-135); Lactate (Lactic Acid) 1.4 mmol/L (0.7-2.1); Lipase 53 U/L (23-300)
[2022-07-01 11:55] LABS: Alanine Aminotransferase 14 IU/L (<35); Albumin 3.7 g/dL (3.5-5.0); Albumin Globulin Ratio 1.3 (1.0-2.8); Alkaline Phosphatase 59 U/L (38-126); Aspartate Aminotransferase 24 IU/L (14-36); BUN Creatinine Ratio 27.9 (6-22); Bilirubin Total 0.7 mg/dL (0.2-1.3); Blood Urea Nitrogen 24 mg/dL (7-17); Calcium 8.6 mg/dL (8.4-10.2); Carbon Dioxide 23 mmol/L (22-32); Chloride 109 mmol/L (98-107); Estimated Glomerular Filt Rate > 60 mL/min (>60); Globulin 2.9 g/dL (1.7-4.1); Glucose 127 mg/dL (80-110); HEMOLYSIS 18 (0-50); Sodium 141 mmol/L (137-145); Total Protein 6.6 g/dL (6.3-8.2)
[2022-07-01 12:05] LABS: NT-proBNP (BNP-Adult 18+) 451 pg/mL (<450)
[2022-07-01 12:07] LABS: Troponin I 0.084 ng/mL (0.01-0.034)
[2022-07-01] MEDS: methylPREDNISolone 125 MG/2 ML VIAL IV (12:11)
--- NOTE | 2022-07-01 12:11 | PC.NURSE ---
Pt reports improvement in breathing, respiration normal, even and unlabored. 2L NC turned to RA.
[2022-07-01 12:12] LABS: Procalcitonin < 0.03 ng/mL (<0.5)
[2022-07-01 12:30] LABS: Adenovirus Not Detected (Not Detect); B. parapertussis Not Detected (Not Detecte); Bordetella pertussis Not Detected (Not Detecte); Chlamydophila pneumoniae Not Detected (Not Detect); Coronavirus 229E Not Detected (Not Detect); Coronavirus HKU1 Not Detected (Not Detect); Coronavirus NL 63 Not Detected (Not Detect); Coronavirus OC43 Not Detected (Not Detect); Human Metapneumovirus Not Detected (Not Detect); Human Rhinovirus/Enterovirus Not Detected (Not Detect); Influenza A Not Detected (Not Detect); Influenza B Not Detected (Not Detect); Mycoplasma pneumoniae Not Detected (Not Detect); Parainfluenza Virus 1 Not Detected (Not Detect); Parainfluenza Virus 2 Not Detected (Not Detect); Parainfluenza Virus 3 Not Detected (Not Detect); Parainfluenza Virus 4 Not Detected (Not Detect); Respiratory Syncytial Virus Not Detected (Not Detect); SARS- CoV-2 Not Detected (Not Detecte)
[2022-07-01 12:53] LABS: D Dimer 1069 ng/ml (<500)
--- NOTE | 2022-07-01 13:23 | DI.CT.S_ITS ---
PROCEDURE: CT ANGIO CHEST PE PROTOCOL INDICATIONS: hypoxia + dimer TECHNIQUE: After the administration of intravenous contrast, 2 mm thick sections acquired from the pulmonary apices to the posterior costophrenic angles. 3-dimensional maximum intensity projection (MIP) coronal and sagittal reformats were then acquired through the thorax. For radiation dose reduction, the following was used: automated exposure control, adjustment of mA and/or kV according to patient size. COMPARISON: None. FINDINGS: Image quality: Excellent. Pulmonary arteries: Pulmonary arteries are normal in size, and demonstrate no intraluminal filling defects to suggest central pulmonary embolism. Lungs and pleura: Lungs are clear. No pleural effusions or pneumothorax. Central and peripheral airways are patent. Mediastinum: Heart size is mildly enlarged., without pericardial effusion. No mediastinal or hilar adenopathy. Mild aneurysmal dilatation of the ascending aorta, measuring 4.3 cm. No dissection. Classic three-vessel arch anatomy. Great vessel origins are widely patent. SMA and celiac are widely patent. Esophagus is normal in caliber, without hiatal hernia. Bones and chest wall: No suspicious bony lesions. Ribs and thoracic spine appear intact throughout. Thyroid gland is unremarkable. No axillary or supraclavicular adenopathy. Abdomen: Visualized upper abdominal solid organs appear normal in the early arterial phase of enhancement. IMPRESSION: 1. No evidence acute pulmonary emboli. 2. No evidence acute pulmonary process. 3. Mild cardiomegaly. 4. Mild aneurysmal dilatation of the ascending aorta measuring 4.3 cm. Dictated by: Mu Giron M.D. on 07/01/2022 at 14:19 Approved by: Mu Giron M.D. on 07/01/2022 at 14:24
[2022-07-01 14:31] LABS: Troponin I 0.693 ng/mL (0.01-0.034)
[2022-07-01 14:53] LABS: PTT Partial Thromboplastin Tim 29 SECONDS (26-36)
[2022-07-01] MEDS: ASPIRIN 81 MG CHEW TAB 324 MG PO (14:54)
[2022-07-01] MEDS: HEPARIN 5,000 UNIT/ML VIAL 5000 UNIT IV (14:56)
[2022-07-01] MEDS: HEPARIN DRIP 25,000 UNIT/500 ML IV.SOLN 20 UNIT IV (14:57)
--- NOTE | 2022-07-01 15:15 | PC.NURSE ---
Called and placed patient on transfer lists at: [facility]: on list [facility]: on list [facility]: on list [facility]: On list [facility]: faxed, waiting for call back VM stated not currently taking transfer [facility] not currently taking transfers
--- NOTE | 2022-07-01 15:23 | DI.ECHO.S_ITS ---
[facility] +---------+ [facility] +---------+ : : [address] : : : : [id number] : : : : Phone: [phone]+ Echocardiogram Report + + :Name: MARGARITO PERKINS Study Date: 07/02/2022 Height: 66.5 in: :[facility] ReadingLocation: Weight: 190 lb : : Gender: Female BSA: 2.0 m2 : :: 1945 Age: 77 yrs BP: 120/59 mmHg: :Reason For Study: NSTEMI : :Ordering Physician: JEANNIE, : :CHRISTIANO Performed By: Delmy Up : :Referring: CHRISTIANO DENNIS : + + Interpretation Summary Normal left ventricle size with ejection fraction 55-60%. Mild aortic regurgitation. Mild tricuspid regurgitation. The ascending aorta is mild-moderately enlarged. Procedure: A two-dimensional transthoracic echocardiogram with color flow and Doppler was performed. The study quality was technically adequate. There is no prior echocardiogram noted for this patient. The patient was in sinus bradycardia with heart rates between 49-58 bpm during the exam. Left Ventricle: The left ventricle is normal in size and wall thickness. The ejection fraction is estimated to be 55-60%. There are no focal wall motion abnormalities. Right Ventricle: The right ventricle is normal in size and function. Atria: The left atrial size is normal. Right atrial size is normal. There is no Doppler evidence for an interatrial shunt. Mitral Valve: The mitral valve is normal in structure and function. There is trace mitral regurgitation. Aortic Valve: The aortic valve is trileaflet. The aortic valve opens well. There is no aortic valve stenosis. There is mild aortic regurgitation. Tricuspid Valve: The tricuspid valve is normal in structure and function. There is mild tricuspid regurgitation. Pulmonic Valve: The pulmonic valve leaflets are thin and pliable; valve motion is normal. There is no pulmonic valvular regurgitation. Great Vessels: The aortic root is normal size. The ascending aorta is mild- moderately enlarged. The IVC is of normal diameter and collapses greater than 50% with a sniff. This suggests a low right atrial pressure of 3 mm Hg. Pericardium/ Pleura There is no pericardial effusion. There is no pleural effusion. MMode/2D Measurements & Calculations LVIDd: 4.5 cm LVOT diam: 2.0 cm LVIDs: 2.8 cm Ao root diam: 3.0 cm FS: 37.7 % asc Aorta Diam: 4.2 cm EPSS: 1.2 cm Ao Arch Diam (Prox Trans): 3.2 cm IVSd: 0.95 cm LVPWd: 1.0 cm LV presley. diameter/BSA (cm/m^2): 2.3 LV sys. diameter/BSA (cm/m^2): 1.4 LA A2 area: 19.2 cm2 RA long axis: 5.8 cm LA A4 area: 22.9 cm2 RA area: 19.7 cm2 LA length (vol): 6.5 cm RA vol: 56.8 ml LA vol: 56.9 ml RA : 28.8 ml/m2 LA vol index: 28.9 ml/m2 IVC diam: 1.5 cm RVD1 (basal): 4.1 cm RVD2 (mid): 3.2 cm TAPSE: 2.5 cm Doppler Measurements & Calculations Ao V2 max: 168.5 cm/sec LVOT Max Zev: 102.3 cm/sec Ao V2 mean: 115.6 cm/sec LV V1 max P.2 mmHg Ao max P.4 mmHg LV V1 VTI: 25.2 cm Ao mean P.1 mmHg MCKAYLA(I,D): 2.0 cm2 Ao V2 VTI: 41.8 cm MCKAYLA(V,D): 2.0 cm2 sev ratio: 0.60 MCKAYLA indexed to BSA (cm^2/m^2): 1.0 AI P1/2t: 694.9 msec AI dec slope: 158.0 cm/sec2 MV E max zev: 79.8 cm/sec TR max zev: 229.7 cm/sec MV A max zev: 93.3 cm/sec TR max P.1 mmHg MV E/A: 0.86 PA V2 max: 91.9 cm/sec Med Peak E' Zev: 5.7 cm/sec PA V2 mean: 60.1 cm/sec E/E' med: 14.1 PA mean P.6 mmHg Lat Peak E' Zev: 8.5 cm/sec PA pr(Accel): 13.9 mmHg E/E' lat: 9.4 E/e' average: 11.8 MV dec time: 0.45 sec SV(LVOT): 82.4 ml Electronically signed by: Sandra Rider on Reading Physician:07/02/2022 01:14 PM
[2022-07-01] MEDS: ATORVASTATIN 20 MG TABLET 80 MG PO (16:06)
[2022-07-01] MEDS: METOPROLOL ER 50 MG TABLET PO (16:06)
[2022-07-01 16:25] LABS: Add Manual Diff / Slide Review NO; Basophils Absolute Auto 0 /uL (0-100); Basophils Percent Auto 0.2 % (0-2); Eosinophils Absolute Auto 0 /uL (0-450); Hematocrit 40.6 % (36-46); Hemoglobin 13.8 g/dL (12.0-16.0); Lymphocytes Absolute Auto 600 /uL (1100-4500); Mean Corpuscular Hemoglobin 28.4 PG (26-34); Mean Corpuscular Volume 83.4 fL (80-100); Monocytes Absolute Auto 100 /uL (0-900); Neutrophils Absolute Auto 11500 /uL (1500-7000); Neutrophils Percent Auto 93.8 % (50-75); Platelet Count 226 X10^3/uL (150-400); Red Blood Cell Count 4.87 X10^6/uL (4.0-5.2); Red Cell Distribution Width 13.5 % (11.6-14.8); White Blood Cell Count 12.3 X10^3/uL (4.5-11.0)
[2022-07-01 16:38] LABS: Alanine Aminotransferase 15 IU/L (<35); Albumin 3.8 g/dL (3.5-5.0); Albumin Globulin Ratio 1.3 (1.0-2.8); Alkaline Phosphatase 69 U/L (38-126); Aspartate Aminotransferase 25 IU/L (14-36); BUN Creatinine Ratio 29.2 (6-22); Bilirubin Total 0.8 mg/dL (0.2-1.3); Blood Urea Nitrogen 21 mg/dL (7-17); Calcium 8.7 mg/dL (8.4-10.2); Carbon Dioxide 22 mmol/L (22-32); Chloride 107 mmol/L (98-107); Creatine Kinase 68 U/L (30-135); Estimated Glomerular Filt Rate > 60 mL/min (>60); Glucose 178 mg/dL (80-110); HEMOLYSIS < 15 (0-50); Potassium 3.9 mmol/L (3.4-5.1); Sodium 137 mmol/L (137-145); Total Protein 6.8 g/dL (6.3-8.2)
[2022-07-01 21:51] LABS: PTT Partial Thromboplastin Tim 126 SECONDS (26-36)
[2022-07-02] VITALS (48 sets, daily range): BP systolic 108–152; BP diastolic 53–95; PULSE 50–91; RESP 17–54; TEMP 36.1; O2SAT 91–97; BMI 28.5
[2022-07-02 04:56] LABS: PTT Partial Thromboplastin Tim 84 SECONDS (26-36)
[2022-07-02] MEDS: LEVOTHYROXINE 112 MCG TABLET PO (07:26)
[2022-07-02] MEDS: METOPROLOL ER 50 MG TABLET PO (08:24)
[2022-07-02] MEDS: ATORVASTATIN 20 MG TABLET 80 MG PO (08:24)
[2022-07-02] MEDS: ASPIRIN 81 MG CHEW TAB 324 MG PO (08:26)
--- NOTE | 2022-07-02 11:23 | PC.NURSE ---
Addendum entered by Fariba Gaming CNA 07/02/22 13:49: followed up with [facility], VM, Rina, SHAJI, Reji, and doris to confirm her placement on the list. will continue to follow up for updates on bed status. Original Note: Pt sitting up in bed talking on phone with family. Pt aaox4/4, speaking in clear and coherent sentences. Breathing even and unlabored. Heparin running at documented rate, x2 IV clean/dry/patent. Updated on current plan of care, understanding verbalized. Pt declines any needs at this time, verbalizes understanding of using call light.
[2022-07-02 11:48] LABS: Add Manual Diff / Slide Review NO; Basophils Absolute Auto 100 /uL (0-100); Basophils Percent Auto 0.3 % (0-2); Eosinophils Absolute Auto 0 /uL (0-450); Eosinophils Percent Auto 0.2 % (2-4); Hematocrit 39.2 % (36-46); Hemoglobin 13.4 g/dL (12.0-16.0); Lymphocytes Absolute Auto 1900 /uL (1100-4500); Lymphocytes Percent Auto 11.8 % (25-40); Mean Corpuscular HGB Conc 34.2 % (30-36); Mean Corpuscular Hemoglobin 28.4 PG (26-34); Mean Corpuscular Volume 83.3 fL (80-100); Monocytes Absolute Auto 1200 /uL (0-900); Monocytes Percent Auto 7.6 % (3-14); Neutrophils Absolute Auto 13100 /uL (1500-7000); Neutrophils Percent Auto 80.1 % (50-75); Platelet Count 236 X10^3/uL (150-400); Red Blood Cell Count 4.71 X10^6/uL (4.0-5.2); Red Cell Distribution Width 13.6 % (11.6-14.8); White Blood Cell Count 16.3 X10^3/uL (4.5-11.0)
[2022-07-02 11:57] LABS: PTT Partial Thromboplastin Tim 60 SECONDS (26-36)
[2022-07-02 12:02] LABS: Alanine Aminotransferase 15 IU/L (<35); Albumin 3.6 g/dL (3.5-5.0); Albumin Globulin Ratio 1.4 (1.0-2.8); Alkaline Phosphatase 61 U/L (38-126); Aspartate Aminotransferase 26 IU/L (14-36); Bilirubin Total 0.7 mg/dL (0.2-1.3); Blood Urea Nitrogen 21 mg/dL (7-17); Carbon Dioxide 26 mmol/L (22-32); Chloride 107 mmol/L (98-107); Estimated Glomerular Filt Rate > 60 mL/min (>60); Globulin 2.5 g/dL (1.7-4.1); Glucose 101 mg/dL (80-110); HEMOLYSIS < 15 (0-50); Potassium 4.1 mmol/L (3.4-5.1); Sodium 138 mmol/L (137-145); Total Protein 6.1 g/dL (6.3-8.2)
[2022-07-02 12:23] LABS: Troponin I 0.812 ng/mL (0.01-0.034)
[2022-07-02 17:55] LABS: PTT Partial Thromboplastin Tim 58 SECONDS (26-36)
[2022-07-02] MEDS: HEPARIN DRIP 25,000 UNIT/500 ML IV.SOLN 16 UNIT IV (19:19)
--- NOTE | 2022-07-02 19:31 | PC.NURSE ---
Admit Note Pt arrived to room 216 from ER via wheelchair at 1815. Alert and oriented x3. SBA to bed, steady on feet, assessed at low fall risk. Instructed to use call light prior to getting up for assistance with IV pump/device management, acknowledged understanding. Oriented to room and call light controls. Belongings at bedside including glasses, electronic reader, darkroom worker, purse, cell phone, and shoes. Declines need to lock up any valuables. Denies chest pain. Denies shortness of breath but audible wheezes heard after activity. SpO2 in the 94-96% range on RA. Heparin gtt infusing at 800 units/hr and next PTT for 07/03 in the AM per protocol. Call light left within reach.
[2022-07-02] MEDS: SENNOSIDES 8.6 MG TABLET 17.2 MG PO (20:34)
[2022-07-02] MEDS: SODIUM CHLORIDE 0.9% FLUSH 10 ML IV ×2 (20:34→21:28)
[2022-07-02] MEDS: ALBUTEROL 2.5 MG/3 ML NEB (ADULT) INH (21:33)
[2022-07-02 21:41] LABS: Appearance Urine UA CLEAR; Bilirubin Urine UA NEGATIVE (NEGATIVE); Color Urine UA YELLOW; Glucose Urine UA NEGATIVE (Negative); Ketones Urine UA TRACE (NEGATIVE); Leukocyte Esterase Urine UA TRACE (NEGATIVE); Nitrite Urine UA NEGATIVE (Negative); Occult Blood Urine UA NEGATIVE (Negative); Protein Urine UA NEGATIVE (Negative); Specific Gravity Urine UA 1.025 (1.000-1.035); Urobilinogen Urine UA 0.2 E.U./dL (0.2)
--- NOTE | 2022-07-02 21:47 | P.HP_ITS ---
History of Present Illness History of Present Illness Date Patient Seen: 07/02/22 Time Patient Seen: 19:35 Chief complaint: SOB, Productive cough Narrative: Lisa Santacruz is a 77-year-old female history of hypothyroid hypertension hyperlipidemia presented to the ED on 07/01/2022 with increasing shortness of breath, wheezing, and tachypneic.? She complained of having increasing shortness of breath the last couple of weeks, mostly with exertion.?Normally she is able to walk to have mild around the [facility] she does not need to stop.?Yesterday morning she had worsening shortness of breath and cough which brought her into the hospital.? In the ED was initially given DuoNeb which improved sob/cough right away and Solu-Medrol.? BNP was negative however her 1st troponin 0.084.? Repeat troponins- 0.693. She continued to deny any chest discomfort.? Her breathing had initially improved.? Her D-dimer was mildly elevated at 1069, her CTA chest does not show any pulmonary embolism or pulmonary edema. It does demonstrate mild cardiomegaly a and mild aortic dilation of 4.3 cm. Patient's EKG normal sinus rhythm with a rate of [address] depression in V4, V5 this is not noted on previous EKG. Patient's chest x-ray demonstrated no acute cardiopulmonary processes. Respiratory panel is negative procalcitonin is negative this is likely to be infectious or stress and reduced she certainly does not seem to be septic.Her symptoms seem odd to have coughing and elevated troponins and no EKG changes she does certainly have risk factors for coronary artery disease including hypertension and hyperlipidemia female and age. Overnight in ED patient's troponin continued to trend upwards: 1.1, 1.2, 0.812.? The patient remained asymptomatic, and was placed on a heparin drip, aspirin, metoprolol, atorvastatin, and her levothyroxine ordered. During the night was sleeping she did require 2 L of O2, but upon waking return to room air. Patients cough and shortness of breath had resolved in ED. Several attempts were made by Dr. Montejo to have the patient transferred to a facility with cardiac catheterization capabilities no beds were available. Dr. Chris Morse cardiology advised patient be admitted to [facility] for nuclear med stress test and heparin drip. 07/02/2022 patient was admitted to hospitalist service this evening as no beds were available. Upon admit to the floor patient's shortness of breath and cough returned and is worsening. She denies chest pain, arm pain, jaw pain, shoulder pain, orthopnea, peripheral swelling, fever, body aches, chills, no other upper respiratory symptoms, abdominal pain, nausea, vomiting, diarrhea, balance or coordination issues, recent falls, recent illness injury or trauma. She does n ote that she had some mild numbness in tingling in her toes bilaterally 2 nights ago that lasted only a few seconds. She has obvious coughing, SOB, and audible wheezing, patient is unable to complete full sentences without coughing or shortness of breath. Patient's echocardiogram this morning showed a normal left ventricle with an EF of 55-60% mild aortic regurgitation, tricuspid regurgitation, ascending aortic mild to moderate enlargement. Patient's vital signs upon admit temp 96.1?, BP 115/58, HR 64, RR 22, O2 saturation 97% on room air. Patient is stable and asymptomatic with the exception of cough and shortness of breath, without chest discomfort. 07/01/2022 WBC 12.3, neutrophils 11,500, mono feels 100, today WBC 16.3, with a left shift neutrophils 13,100, mono feels 1200. Patient's chemistries are predominantly unremarkable with a BUN of 20 total protein 6.1, 07/01/2022 APTT 126, 60, 07/02/2022 58 while on heparin drip. Patient admitted for shortness of breath, acute NSTEMI/myocardial injury, leukocytosis. Patient History Medical History (Updated 07/02/22 @ 22:19 by AUGUST Lewis-JUSTIN) Chronic cough GERD (gastroesophageal reflux disease) Hypothyroidism (acquired) Impaired fasting blood sugar LPRD (laryngopharyngeal reflux disease) Surgical History (Updated 07/02/22 @ 22:19 by JEREMY Lewis) History of appendectomy Family & Social History Family History (Updated 07/02/22 @ 22:20 by JEREMY Lewis) Mother Congestive heart failure Father Stroke Alcohol abuse Social History: household members Lives alone, on property she shares with her daughter and son-in-law Prior Living Arrangements House Safety & Behavioral: Feels Safe in Current Yes Environment Been Physically Hurt or No Threatened By a Person Tobacco & Substance use: Smoking Status Never smoker alcohol intake current-occasional wine or gin and tonic socially alcohol intake frequency holiday/special occasion Substance Use Type does not use Meds Home Medications and Allergies Home Medications Medication Instructions Recorded Confirmed Type [ARREDS] 1 tab PO QDAY ##0 08/22/17 07/02/22 History multivitamin (Multiple Vitamins 1 tab PO QDAY ##0 08/22/17 07/02/22 History tablet) omeprazole 20 mg capsule,delayed 20 mg PO DAILY #90 caps 04/24/21 07/02/22 Rx release levothyroxine 112 mcg tablet 112 mcg PO DAILY #90 tabs 01/01/22 07/02/22 Rx atorvastatin 10 mg tablet 10 mg PO BEDTIME 07/02/22 07/02/22 History metoprolol succinate 50 mg 50 mg PO DAILY 07/02/22 07/02/22 History tablet,extended release 24 hr Allergies Allergy/AdvReac Type Severity Reaction Status Date / Time cefaclor Allergy Severe (Ceclor) Verified 07/01/22 11:23 HIVES AND SWELLING hydrochlorothiazide AdvReac Severe PANCREATITI Verified 07/01/22 11:23 S Review of Systems Review of Systems Narrative: All 12 point systems reviewed with the patient and are negative except otherwise documented. Exam Vital Signs (past 8 hours): - 07/02/22 14:00 07/02/22 14:01 07/02/22 14:01 Temperature Pulse Rate 60 60 Respiratory Rate 28 H 28 H Blood Pressure 125/60 Pulse Oximetry 93 94 Oxygen Delivery Method Oxygen Flow Rate 07/02/22 14:30 07/02/22 15:00 07/02/22 15:30 Temperature Pulse Rate 59 L 55 L 63 Respiratory Rate 17 22 Blood Pressure Pulse Oximetry 94 91 93 Oxygen Delivery Method Oxygen Flow Rate 07/02/22 16:00 07/02/22 16:00 07/02/22 16:30 Temperature Pulse Rate 57 L 61 Respiratory Rate 25 H 24 Blood Pressure 115/58 L Pulse Oximetry 93 94 Oxygen Delivery Method Oxygen Flow Rate 07/02/22 17:00 07/02/22 17:30 07/02/22 18:00 Temperature Pulse Rate 62 61 64 Respiratory Rate 20 20 22 Blood Pressure Pulse Oximetry 94 94 93 Oxygen Delivery Method Oxygen Flow Rate 07/02/22 18:40 07/02/22 18:00 07/02/22 20:00 Temperature 97.0 F L Pulse Rate 63 Respiratory Rate 19 Blood Pressure 135/77 Pulse Oximetry 93 94 Oxygen Delivery Method Room Air Room Air Oxygen Flow Rate 0 Oxygen Delivery Method Room Air Oxygen Flow Rate 0 Narrative Exam Narrative: General: Patient is a well-developed, well-nourished young appearing delightful elderly female, in mild distress due to coughing & SOB at this time, without chest pain. HEENT: Normocephalic, atraumatic, extraocular muscles intact, oral pharynx is clear and mucous membranes are moist. Neck is supple and symmetric, trachea is midline, no adenopathy, no thyroid enlargement, nontender, no masses palpated. Negative for JVD Chest: Normal AP diameter and contour without kyphoscoliosis, no nasal flaring, retractions, positive tachypneic labored breathing. Lungs: Auscultation of all lung eldridge are diffusely coarse decreased poor air exchange gross expiratory wheezing, and audible wheezing. Cardio: regular rate and rhythm without murmur, rubs, or gallops, no carotid bruit, no cardiac pulsations present. Abdomen: Soft nontender, negative for organomegaly, or masses. Bowel sounds are present in all 4 quadrants without guarding or rebound, no CVA tenderness. Musculoskeletal: Muscle strength and tone are equal within normal limits, no deformity, crepitus, effusions, cyanosis, clubbing or edema present. Full range of motion intact radial and pedal pulses are normal. Skin: Warm dry and intact without rashes, ulcerations or petechiae. Neuro: Alert and orientated x3, strength is +5/5 in all extremities, sensation to touch intact, no gross deficits noted of cranial nerves. Psych: Patient has a well-kept appearance, appropriate affect, mental status attitude thought context and judgment are appropriate for age. Objective Labs Result Diagrams: 07/02/22 11:25 07/02/22 11:25 Labs: Laboratory Results - last 24 hr 07/01/22 07/02/22 07/02/22 21:00 04:35 11:25 WBC 16.3 H RBC 4.71 Hgb 13.4 Hct 39.2 MCV 83.3 MCH 28.4 MCHC 34.2 RDW 13.6 Plt Count 236 Neut % (Auto) 80.1 H Lymph % (Auto) 11.8 L [place] % (Auto) 7.6 Eos % (Auto) 0.2 L Baso % (Auto) 0.3 Neut # (Auto) 95769 H Lymph # (Auto) 1900 [place] # (Auto) 1200 H Eos # (Auto) 0 Baso # (Auto) 100 APTT 126 H* D 84 H* D Sodium Potassium Chloride Carbon Dioxide BUN Creatinine Estimated GFR BUN/Creatinine Ratio Glucose Calcium Magnesium Total Bilirubin AST ALT Alkaline Phosphatase Troponin I Total Protein Albumin Globulin Albumin/Globulin Ratio Urine Color Urine Appearance Urine pH Ur Specific [place] Urine Protein Urine Glucose (UA) Urine Ketones Urine Occult Blood Urine Nitrate Urine Bilirubin Urine Urobilinogen Ur Leukocyte Esterase 07/02/22 07/02/22 07/02/22 11:25 11:25 11:25 WBC RBC Hgb Hct MCV MCH MCHC RDW Plt Count Neut % (Auto) Lymph % (Auto) [place] % (Auto) Eos % (Auto) Baso % (Auto) Neut # (Auto) Lymph # (Auto) [place] # (Auto) Eos # (Auto) Baso # (Auto) APTT 60 H D Sodium 138 Potassium 4.1 Chloride 107 Carbon Dioxide 26 BUN 21 H Creatinine 0.75 Estimated GFR > 60 BUN/Creatinine Ratio 28.0 H Glucose 101 Calcium 9.0 Magnesium Total Bilirubin 0.7 AST 26 ALT 15 Alkaline Phosphatase 61 Troponin I 0.812 H* Total Protein 6.1 L Albumin 3.6 Globulin 2.5 Albumin/Globulin Ratio 1.4 Urine Color Urine Appearance Urine pH Ur Specific [place] Urine Protein Urine Glucose (UA) Urine Ketones Urine Occult Blood Urine Nitrate Urine Bilirubin Urine Urobilinogen Ur Leukocyte Esterase 07/02/22 07/02/22 07/02/22 11:25 17:25 20:40 WBC RBC Hgb Hct MCV MCH MCHC RDW Plt Count Neut % (Auto) Lymph % (Auto) [place] % (Auto) Eos % (Auto) Baso % (Auto) Neut # (Auto) Lymph # (Auto) [place] # (Auto) Eos # (Auto) Baso # (Auto) APTT 58 H Sodium Potassium Chloride Carbon Dioxide BUN Creatinine Estimated GFR BUN/Creatinine Ratio Glucose Calcium Magnesium 2.0 Total Bilirubin AST ALT Alkaline Phosphatase Troponin I Total Protein Albumin Globulin Albumin/Globulin Ratio Urine Color Yellow Urine Appearance Clear Urine pH 5.0 Ur Specific [place] 1.025 Urine Protein Negative Urine Glucose (UA) Negative Urine Ketones Trace H Urine Occult Blood Negative Urine Nitrate Negative Urine Bilirubin Negative Urine Urobilinogen 0.2 Ur Leukocyte Esterase Trace H Assessment & Plan Assessment & Plan narrative: Lisa Santacruz is a 77-year-old female history of hypothyroid hypertension hyperlipidemia presented to the ED on 07/01/2022 with increasing shortness of breath, wheezing, and tachypneic, patient was found to have escalating troponins without chest pain, EKG changes, PE and unremarkable Echo elevated troponins are likely to be infectious or stress induced. Through patients WBC are increasing with a left shift. Several attempts were made to transfer patient to a facility with cardiac catheterization capabilities, unsuccessfully. Patient remained asymptomatic, and was placed on a heparin drip, aspirin, metoprolol, atorvastatin, and admitted per Dr. Chris Morse cardiology recommendations for nuclear med stress test and heparin drip. Patient's cough and shortness of breath have returned again still with no chest pain, unknown etiology. Patient admitted for shortness of breath, acute NSTEMI/myocardial injury, leukocytosis. 1. Acute NSTEMI/myocardial injury, acute, present on admission -Suspect that elevated troponins are due to an infectious process -temp 96.1?, BP 115/58, HR 64, RR 22, O2 saturation 97% on room air, patient is stable without chest pain. -troponins: 0.084, 0.693, 1.1, 1.2, 0.812 -Patients risk factors for coronary artery disease hypertension, hyperlipidemia female and age. Heart Score:5 -BNP negative, D-dimer 1069, CTA chest -No PE or pulmonary edema, mild cardiomegaly, and mild aneurysmal dilatation of the ascending aorta measuring 4.3 cm.?. -EKG normal sinus rhythm with a rate of [address] depression in V4, V5 this is not noted on previous EKG. -echocardiogram- normal left ventricle with an EF of 55-60% mild aortic regurgitation, tricuspid regurgitation, ascending aortic mild to moderate en largement. -Consult Dr. Chris Morse cardiology -Telemed, nuclear med stress test, ASA, Lipitor -Heparin drip (protocol),07/01/2022 APTT 126, 60, 07/02/2022:APTT 58 2. Shortness of breath, cough, acute, present on admission -patient is not in acute respiratory failure and is not requiring oxygenation at this time, suspect chronic asthma exacerbation with possible viral/bacterial infection. -chest x-ray- no acute cardiopulmonary processes. -Covid negative, Respiratory panel negative, procalcitonin is negative, repeating COVID test tomorrow. -respiratory consult, incentive spirometry, DuoNebs, albuterol HFA inhaler with spacer, initial dose of IV Solu-Medrol, followed by 40 mg prednisone p.o. x5 days -recommended patient take oral allergy medication like Claritin or Zyrtec consistently daily for pulse treatment of 3 months upon discharge. -patient to be discharged home with HFA inhaler and spacer and Education -sputum culture ordered 3. Neutrophilic leukocytosis, acute, present on admission -likely chronic asthma exacerbation/viral illness, although unsure as to the increasing left shift. -07/01/2022 WBC 12.3, neutrophils# 11,500, mono# 100 -07/02/2022 WBC 16.3, neutrophils# 13,100, mono#1200. -ordered repeat procalcitonin, blood cultures -Trend labs, monitor for fever worsening respiratory function, repeat procalcitonin -U/A negative 4. Essential hypertension, chronic, present on admission-controlled -continue metoprolol -admit BP 115/58 5. Hyperlipidemia, chronic, present on admission -continue Lipitor 6. Hypothyroidism, acquired, chronic, present on admission -continue levothyroxine 7. GERD, chronic, present on admission -continue omeprazole 8. Overweight as evidence by BMI of 28.6, acute on chronic, present on admission -dietary consult placed for nutritional education lifestyle changes and weight loss Code status:Full Surrogate decision maker: Jennifer Medellin Daughter COVID PCR:-07/01/2022 DVT/VTE prophylaxis: Heparin drip and SCDs Disposition: Patient admitted for acute NSTEMI/myocardial injury, shortness of breath, estimated length of stay greater than 2 midnights. Patient had been boarding in the emergency department as of 07/01/2022, admitted to acute care on 07/02/2022. I have utilized all available immediate resources to obtain, update, or review the patient's current medications. I confirmed that the patient's advanced care plan is present, Code status is documented and/or surrogate decision maker is listed in the patient's medical record. Time Spent With Patient Critical Care time: I spent a total of [] minutes of critical care time on this patient's care today; this time is exclusive of procedural time. Quality VTE Deep Vein Thrombosis/Pulmonary Embolism Present on Admission: No
[2022-07-02 21:59] LABS: Bacteria Urine Occasional (0-1); Culture Indicated Urine Cult Not Indicated; RBC Urine 0-1/HPF (0-5/HPF); Squamous Epithelial Cell Urine 0-1 /HPF (0-5/HPF); WBC Urine 0-1/HPF (0-5/HPF)
--- NOTE | 2022-07-02 22:43 | PC.NURSE ---
Patient is alert and oriented. Breath sounds coarse with expiratory wheezing. Denies SOB but does have intermittent cough which she states is mostly non productive; RA sat 94%; on continuous oximetry. HRR with telemetry reading of SR w/premature ventricular contractions. Denies any chest pain. Continues on heparin drip. Denies nausea. BT present and abdomen is soft; passing flatus. Denies dysuria, frequency or urgency with urination. Is independent with mobility. Bilateral calf SCD's applied once patient in bed. Denies any pain/discomfort. Fall risk score is low.
[2022-07-02 23:44] LABS: Lactate (Lactic Acid) 1.7 mmol/L (0.7-2.1)
[2022-07-03] VITALS (8 sets, daily range): BP systolic 129–155; BP diastolic 63–85; PULSE 57–64; RESP 16–18; TEMP 35.6–36.7; O2SAT 93–98
[2022-07-03 00:10] LABS: Procalcitonin 0.04 ng/mL (<0.5)
[2022-07-03] MEDS: LEVOTHYROXINE 112 MCG TABLET PO (04:51)
[2022-07-03 04:58] LABS: COVID19 -Nasal RAPID Negative (Negative)
[2022-07-03 05:10] LABS: PTT Partial Thromboplastin Tim 81 SECONDS (26-36)
[2022-07-03 05:41] LABS: Cholesterol 125 mg/dL (140-199); HDL Cholesterol 53 mg/dL (40-60); LDL Cholesterol Calculated 59 mg/dL (<100); Triglycerides 63 mg/dL (35-150)
[2022-07-03 05:50] LABS: NT-proBNP (BNP-Adult 18+) 2360 pg/mL (<450)
[2022-07-03 08:17] LABS: Add Manual Diff / Slide Review NO; Basophils Absolute Auto 0 /uL (0-100); Basophils Percent Auto 0.4 % (0-2); Eosinophils Absolute Auto 0 /uL (0-450); Hematocrit 37.2 % (36-46); Hemoglobin 12.6 g/dL (12.0-16.0); Lymphocytes Absolute Auto 1100 /uL (1100-4500); Mean Corpuscular HGB Conc 33.9 % (30-36); Mean Corpuscular Hemoglobin 28.6 PG (26-34); Mean Corpuscular Volume 84.3 fL (80-100); Monocytes Absolute Auto 200 /uL (0-900); Monocytes Percent Auto 1.9 % (3-14); Neutrophils Absolute Auto 7400 /uL (1500-7000); Neutrophils Percent Auto 84.7 % (50-75); Platelet Count 207 X10^3/uL (150-400); Red Blood Cell Count 4.41 X10^6/uL (4.0-5.2); Red Cell Distribution Width 13.6 % (11.6-14.8); White Blood Cell Count 8.7 X10^3/uL (4.5-11.0)
[2022-07-03 08:29] LABS: Alanine Aminotransferase 13 IU/L (<35); Albumin 3.2 g/dL (3.5-5.0); Albumin Globulin Ratio 1.3 (1.0-2.8); Alkaline Phosphatase 55 U/L (38-126); Aspartate Aminotransferase 25 IU/L (14-36); BUN Creatinine Ratio 30.8 (6-22); Bilirubin Total 0.4 mg/dL (0.2-1.3); Blood Urea Nitrogen 24 mg/dL (7-17); Calcium 8.6 mg/dL (8.4-10.2); Carbon Dioxide 26 mmol/L (22-32); Chloride 109 mmol/L (98-107); Estimated Glomerular Filt Rate > 60 mL/min (>60); Globulin 2.5 g/dL (1.7-4.1); Glucose 150 mg/dL (80-110); HEMOLYSIS < 15 (0-50); Potassium 4.6 mmol/L (3.4-5.1); Sodium 139 mmol/L (137-145); Total Protein 5.7 g/dL (6.3-8.2)
[2022-07-03 08:37] LABS: Troponin I 0.507 ng/mL (0.01-0.034)
--- NOTE | 2022-07-03 08:51 | PC.NURSE ---
Per TOMER Kellogg pt has been NPO SINCE 04:00 07/03/2022 for cardiac stress test. Pt NPO for procedure.
--- NOTE | 2022-07-03 09:30 | CM.DANOTE ---
DCP: Case received, EMR reviewed and met with patient. Introduced self and role. Was able to obtain information regarding patient's baseline activity level prior to hospitalization, as well as her current living situation. DCP assessment completed with information currently available. Patient is a 77 year old female who admitted yesterday afternoon to the care of the hospitalist team. PCP: JENNIFER Garcia Payer: confirmed: [facility]. Patient came to the hospital via private vehicle secondary to having increased shortness of breth, wheezing, and tachypneic. According to notes, patient had been complaining of these symptoms for the last couple of weeks, but the symptoms had gotten worse. She did have an ehco which noted some valve regurgitation, and ascending aortic mild to moderate enlargement. Patient holds current diagnosis of Acute NSTEMI/IA. Noted indicated that transfer was attempted, but no beds. Met with patient in her room. She was sitting up in bed, alert and oriented, pleasant. Confirmed that she resides here in [place] alone, but lives on her daughter's property. She is independent at her baseline. She indicated, she had attempted to get into see her primary care provider, but no openings until August, and her symptoms had gotten worse. She stated, she is currently feeling better now, since she had oxygen. She is having a stress test today. P: DCP to continue to follow for any needs. Plan is home when stable, if unable to transfer for cardiac cath. Gabrielle Thompson RN/Electronic Equipment Repairmen Discharge Planning/Care Management CM Discharge Assessment Start: 07/03/22 09:24 Freq: Status: Active Protocol: Document 07/03/22 09:29 (Rec: 07/03/22 09:30 [id number]) Discharge Planning Assessment Assigned Drafter Electronic Gabrielle Thompsno RN/Electronic Equipment Repairmen Advance Directives? No History Provided By Patient,Medical Record Prior Living Arrangements House Household Members none Type of transporation used prior to Drives own vehicle admit Independent with ADL's Yes Is patient alert and oriented? Yes Caregiver for Another No Barriers to Discharge No Discharge Plan Home Transportation Arrangement Daughter Referrals Initiated None needed Whiteboard Updated in Patient Room with Yes name and ext. # of Drafter Electronic Review Status In Process Next Review Type Continued Stay Review
[2022-07-03] MEDS: SODIUM CHLORIDE 0.9% FLUSH 10 ML IV (09:47)
--- NOTE | 2022-07-03 10:53 | PC.NURSE ---
Pt off unit now for nuclear stress test imaging.
--- NOTE | 2022-07-03 15:12 | PC.NURSE ---
Addendum entered by Jessica Noriega R.N. 07/03/22 15:15: Heparin infusion stopped. Original Note: Per Dr. Monroe stop Heparin infusion at 15:00.
--- NOTE | 2022-07-03 17:08 | P.DS_ITS ---
History of Present Illness History of Present Illness Date Patient Seen: 07/02/22 Time Patient Seen: 19:35 Chief complaint: SOB, Productive cough Narrative: Per admitting provider: Lisa Santacruz is a 77-year-old female history of hypothyroid hypertension hyperlipidemia presented to the ED on 07/01/2022 with increasing shortness of breath, wheezing, and tachypneic.? She complained of having increasing shortness of breath the last couple of weeks, mostly with exertion.?Normally she is able to walk to have mild around the [facility] she does not need to stop.?Yesterday morning she had worsening shortness of breath and cough which brought her into the hospital.? In the ED was initially given DuoNeb which improved sob/cough right away and Solu-Medrol.? BNP was negative however her 1st troponin 0.084.? Repeat troponins- 0.693. She continued to deny any chest discomfort.? Her breathing had initially improved.? Her D-dimer was mildly elevated at 1069, her CTA chest does not show any pulmonary embolism or pulmonary edema. It does demonstrate mild cardiomegaly a and mild aortic dilation of 4.3 cm. Patient's EKG normal sinus rhythm with a rate of [address] depression in V4, V5 this is not noted on previous EKG. Patient's chest x-ray demonstrated no acute cardiopulmonary processes. Respiratory panel is negative procalcitonin is negative this is likely to be infectious or stress and reduced she certainly does not seem to be septic.Her symptoms seem odd to have coughing and elevated troponins and no EKG changes she does certainly have risk factors for coronary artery disease including hypertension and hyperlipidemia female and age. Overnight in ED patient's troponin continued to trend upwards: 1.1, 1.2, 0.812.? The patient remained asymptomatic, and was placed on a heparin drip, aspirin, metoprolol, atorvastatin, and her levothyroxine ordered. During the night was sleeping she did require 2 L of O2, but upon waking return to room air. Patients cough and shortness of breath had resolved in ED. Several attempts were made by Dr. Montejo to have the patient transferred to a facility with cardiac catheterization capabilities no beds were available. Dr. Chris Morse cardiology advised patient be admitted to [facility] for nuclear med stress test and heparin drip. 07/02/2022 patient was admitted to hospitalist service this evening as no beds were available. Upon admit to the floor patient's shortness of breath and cough returned and is worsening. She denies chest pain, arm pain, jaw pain, shoulder pain, orthopnea, peripheral swelling, fever, body aches, chills, no other upper respiratory symptoms, abdominal pain, nausea, vomiting, diarrhea, balance or coordination issues, recent falls, recent illness injury or trauma. She does note that she had some mild numbness in tingling in her toes bilaterally 2 n ights ago that lasted only a few seconds. She has obvious coughing, SOB, and audible wheezing, patient is unable to complete full sentences without coughing or shortness of breath. Patient's echocardiogram this morning showed a normal left ventricle with an EF of 55-60% mild aortic regurgitation, tricuspid regurgitation, ascending aortic mild to moderate enlargement. Patient's vital signs upon admit temp 96.1?, BP 115/58, HR 64, RR 22, O2 saturation 97% on room air. Patient is stable and asymptomatic with the exception of cough and shortness of breath, without chest discomfort. 07/01/2022 WBC 12.3, neutrophils 11,500, mono feels 100, today WBC 16.3, with a left shift neutrophils 13,100, mono feels 1200. Patient's chemistries are predominantly unremarkable with a BUN of 20 total protein 6.1, 07/01/2022 APTT 126, 60, 07/02/2022 58 while on heparin drip. Patient admitted for shortness of breath, acute NSTEMI/myocardial injury, leukocytosis. Discharge Providers Provider Date of admission: 07/02/22 17:40 Discharge Date: 07/03/22 Primary care physician: JENNIFER Garcia Consults: 07/02/22 19:27 Consult to Dietitian, Adult Routine Comment: Reason For Exam: BMI 28.6, NSTEMI 07/02/22 21:08 Consult to Respiratory Therapy Evaluate & Treat Comment: Cough SOB Physician Instructions: Evaluate and treat Discharge provider: Ronnie Monroe MD Summary Hospital Course Discharge Diagnosis: 1. NSTEMI, Type 2 2. Mild ascending aortic aneursym dilation 3. Post-nasal drip 4. Cough Hospital Course: Ms. Santacruz was admitted with and some shortness of breath due to prolonged coughing fits. She had workup done which showed an elevated troponin that peaked at greater than 1. She was started on aspirin and a heparin drip. Her troponin improved. She never had chest pain. She had an ECHO done which showed a normal EF. CT angio showed no PE or pulmonary process. She had a mild ascending aortic aneurysm. She did note postnasal drip and this may be the cause of her cough. She was encouraged to try flonase for one week and follow up closely with her PCP. She can continue flonase and aspirin. Exam Vital Signs (past 8 hours): - 07/03/22 11:45 07/03/22 12:40 07/03/22 15:51 Temperature 96.3 F L 96.1 F L Pulse Rate 64 59 L Respiratory Rate 17 17 Blood Pressure 155/74 H 148/80 H Pulse Oximetry 96 96 98 Oxygen Delivery Method Room Air Oxygen Flow Rate 0 0 0 07/03/22 16:33 Temperature Pulse Rate Respiratory Rate Blood Pressure Pulse Oximetry 98 Oxygen Delivery Method Room Air Oxygen Flow Rate 0 Oxygen Delivery Method Room Air Oxygen Flow Rate 0 Narrative Exam Narrative: GEN: no acute distress CV: regular rate and rhythm PULM: clear bilaterally Objective Labs Result Diagrams: 07/03/22 04:30 07/03/22 04:30 Labs: Laboratory Results - last 24 hr 07/02/22 07/02/22 07/02/22 11:25 17:25 20:40 WBC RBC Hgb Hct MCV MCH MCHC RDW Plt Count Neut % (Auto) Lymph % (Auto) [place] % (Auto) Eos % (Auto) Baso % (Auto) Neut # (Auto) Lymph # (Auto) [place] # (Auto) Eos # (Auto) Baso # (Auto) APTT 58 H Sodium Potassium Chloride Carbon Dioxide BUN Creatinine Estimated GFR BUN/Creatinine Ratio Glucose Lactate Calcium Magnesium 2.0 Total Bilirubin AST ALT Alkaline Phosphatase Troponin I NT-Pro-B Natriuret Pep Total Protein Albumin Globulin Albumin/Globulin Ratio Triglycerides Cholesterol LDL Cholesterol, Calc HDL Cholesterol Procalcitonin Urine Color Yellow Urine Appearance Clear Urine pH 5.0 Ur Specific [place] 1.025 Urine Protein Negative Urine Glucose (UA) Negative Urine Ketones Trace H Urine Occult Blood Negative Urine Nitrate Negative Urine Bilirubin Negative Urine Urobilinogen 0.2 Ur Leukocyte Esterase Trace H Urine RBC 0-1/hpf Urine WBC 0-1/hpf Ur Squamous Epith Cells 0-1 /hpf Urine Bacteria Occasional (0-1) Ur Culture Indicated? Cult not indicated SARS-CoV-2 (PCR) 07/02/22 07/02/22 07/03/22 23:18 23:18 04:30 WBC RBC Hgb Hct MCV MCH MCHC RDW Plt Count Neut % (Auto) Lymph % (Auto) [place] % (Auto) Eos % (Auto) Baso % (Auto) Neut # (Auto) Lymph # (Auto) [place] # (Auto) Eos # (Auto) Baso # (Auto) APTT 81 H* D Sodium Potassium Chloride Carbon Dioxide BUN Creatinine Estimated GFR BUN/Creatinine Ratio Glucose Lactate 1.7 Calcium Magnesium Total Bilirubin AST ALT Alkaline Phosphatase Troponin I NT-Pro-B Natriuret Pep Total Protein Albumin Globulin Albumin/Globulin Ratio Triglycerides Cholesterol LDL Cholesterol, Calc HDL Cholesterol Procalcitonin 0.04 Urine Color Urine Appearance Urine pH Ur Specific [place] Urine Protein Urine Glucose (UA) Urine Ketones Urine Occult Blood Urine Nitrate Urine Bilirubin Urine Urobilinogen Ur Leukocyte Esterase Urine RBC Urine WBC Ur Squamous Epith Cells Urine Bacteria Ur Culture Indicated? SARS-CoV-2 (PCR) 07/03/22 07/03/22 07/03/22 04:30 04:30 04:30 WBC 8.7 RBC 4.41 Hgb 12.6 Hct 37.2 MCV 84.3 MCH 28.6 MCHC 33.9 RDW 13.6 Plt Count 207 Neut % (Auto) 84.7 H Lymph % (Auto) 13.0 L [place] % (Auto) 1.9 L Eos % (Auto) 0.0 L Baso % (Auto) 0.4 Neut # (Auto) 7400 H Lymph # (Auto) 1100 [place] # (Auto) 200 Eos # (Auto) 0 Baso # (Auto) 0 APTT Sodium 139 Potassium 4.6 Chloride 109 H Carbon Dioxide 26 BUN 24 H Creatinine 0.78 Estimated GFR > 60 BUN/Creatinine Ratio 30.8 H Glucose 150 H Lactate Calcium 8.6 Magnesium Total Bilirubin 0.4 AST 25 ALT 13 Alkaline Phosphatase 55 Troponin I NT-Pro-B Natriuret Pep 2360 H Total Protein 5.7 L Albumin 3.2 L Globulin 2.5 Albumin/Globulin Ratio 1.3 Triglycerides 63 Cholesterol 125 L LDL Cholesterol, Calc 59 HDL Cholesterol 53 Procalcitonin Urine Color Urine Appearance Urine pH Ur Specific [place] Urine Protein Urine Glucose (UA) Urine Ketones Urine Occult Blood Urine Nitrate Urine Bilirubin Urine Urobilinogen Ur Leukocyte Esterase Urine RBC Urine WBC Ur Squamous Epith Cells Urine Bacteria Ur Culture Indicated? SARS-CoV-2 (PCR) 07/03/22 07/03/22 04:30 04:31 WBC RBC Hgb Hct MCV MCH MCHC RDW Plt Count Neut % (Auto) Lymph % (Auto) [place] % (Auto) Eos % (Auto) Baso % (Auto) Neut # (Auto) Lymph # (Auto) [place] # (Auto) Eos # (Auto) Baso # (Auto) APTT Sodium Potassium Chloride Carbon Dioxide BUN Creatinine Estimated GFR BUN/Creatinine Ratio Glucose Lactate Calcium Magnesium Total Bilirubin AST ALT Alkaline Phosphatase Troponin I 0.507 H* NT-Pro-B Natriuret Pep Total Protein Albumin Globulin Albumin/Globulin Ratio Triglycerides Cholesterol LDL Cholesterol, Calc HDL Cholesterol Procalcitonin Urine Color Urine Appearance Urine pH Ur Specific [place] Urine Protein Urine Glucose (UA) Urine Ketones Urine Occult Blood Urine Nitrate Urine Bilirubin Urine Urobilinogen Ur Leukocyte Esterase Urine RBC Urine WBC Ur Squamous Epith Cells Urine Bacteria Ur Culture Indicated? SARS-CoV-2 (PCR) Negative [facility] Medical History (Updated 07/02/22 @ 22:19 [facility] Chronic cough GERD (gastroesophageal reflux disease) Hypothyroidism (acquired) Impaired fasting blood sugar LPRD (laryngopharyngeal reflux disease) Surgical History (Updated 07/02/22 @ 22:19 by AUGUST LewisJUSTIN) History of appendectomy Family History (Updated 07/02/22 @ 22:21 by AUGUST LewisJUSTIN) Mother Congestive heart failure Father Stroke Alcohol abuse Social History household members: none Smoking Status: Never smoker second hand exposure: No alcohol intake: current substance use type: does not use Discharge Plan Discharge Plan Patient Disposition: Home Provider Discharge Comment: Ms. Santacruz came in to the hospital with a cough. She was found to have a high cardiac enzyme (called troponin). This went down. She had multiple cardiac tests including an echocardiogram and stress test which showed good heart function and no evidence of heart blockage. Please note you had small amount of widening of your aorta, please follow up with your PCP for further monitoring. Please try flonase nasal spray over the counter for a week to see if that improves your cough. Follow up with primary care doctor within two weeks. Discharge orders & Medications Prescriptions: New aspirin 81 mg tablet,delayed release (DR/EC) 81 mg PO DAILY Qty: 30 0RF fluticasone propionate [Flonase Allergy Relief] 50 mcg/actuation spray,suspension 1 spray intranasal DAILY Qty: 16 0RF Rx Instructions: administer into each nostril Continued multivitamin [Multiple Vitamins] 1 EACH tablet 1 tab PO QDAY Qty: 0 [ARREDS] 1 tab PO QDAY Qty: 0 levothyroxine 112 mcg tablet 112 mcg PO DAILY Qty: 90 3RF omeprazole 20 mg capsule,delayed release(DR/EC) 20 mg PO DAILY Qty: 90 1RF atorvastatin 10 mg Tablet 10 mg PO BEDTIME metoprolol succinate 50 mg Tablet Extended Release 24 Hr 50 mg PO DAILY Follow up/Referrals: Franco Torre ARNP [Primary Care Provider] - Diet/Activity/Treatments Diet: Regular Discharge Data Primary Care Provider: Franco Torre Quality VTE Deep Vein Thrombosis/Pulmonary Embolism Present on Admission: No
--- NOTE | 2022-07-03 21:08 | DI.NM.S_ITS ---
DATE OF SERVICE: 07/03/2022 PROCEDURE: Exercise perfusion study. INDICATION: Shortness of breath, tachypnea, abnormal troponin, underlying hypertension, hyperlipidemia, hypothyroidism, leukocytosis. In the hospital, the patient was treated for non-STEMI. RADIOPHARMACEUTICAL: 25.7 millicurie technetium-99m Myoview IV was injected at stress and 10.7 millicurie technetium-99m Myoview IV was injected at rest. CARDIAC STRESS: The patient underwent exercise perfusion study under the supervision of an attending staff. The patient walked on Cas protocol for 6 minutes and 11 seconds, achieved 103 percent of target heart rate. Baseline blood pressure 130/78 mmHg. Peak blood pressure 176/100 mmHg. AMADOU -21 percent. Achieved 7 METs of workload. Baseline rhythm was sinus with mild sinus bradycardia. During stress, the patient has intermittent PVCs, including ventricular bigeminy and occasional PACs with short run of atrial tachycardia. In recovery, some nonspecific ST-T changes. No sustained ventricular tachycardia. No chest pain. Had moderate shortness of breath and baseline wheezing. RAW DATA: Breast shadow was seen. GATED STUDY: Stress LV ejection fraction 68 percent without any obvious wall motion abnormality. Resting end-diastolic volume 108 mL. TID ratio 1.10, which is within normal limits. Lung/heart ratio 0.32, which is within normal limits. MYOCARDIAL PERFUSION SCAN: Stress supine, resting supine and stress prone images were compared to each other. Stress supine and resting supine images revealed small size, mild to moderately decreased perfusion of distal anteroseptum and distal anterior wall, which got completely resolved during stress prone images, suggestive of breast tissue attenuation artifact. No convincing ischemia or infarction pattern during stress prone images. CONCLUSION: I will call this study likely a normal myocardial perfusion study with evidence of breast tissue attenuation artifact, which got resolved during stress prone images. Functional aerobic impairment -21 percent. Hypertensive blood pressure response. No chest pain, however had moderate shortness of breath with underlying wheezing. Intermittent premature ventricular contractions, including bigeminy and some premature atrial contractions and short run of atrial tachycardia during stress. No obvious atrial fibrillation or sustained ventricular tachycardia was seen. Preserved left ventricular function. As far as perfusion scan is concerned, this is a low-risk myocardial perfusion scan. Lisa Santacruz - WYATT/brenda/marimar doc#: [id number]/job#: [id number] dd: 07/03/2022 17:00:00 dt: 07/03/2022 20:58:00 DICTATING MD/COPIES TO: Ally Hameed MD COPIES MNE: JOEL;
== END 2022-07-03 17:43 | disposition home or self-care (01) | DRG 282 ==
LOC: ED 07-02 08:53 → AC 07-02 17:41
PROVIDERS: Emergency Medicine; Nurse Practitioner Family; Admitting Provider Internal Medicine; Emergency Provider Emergency Medicine; PCP Registered Nurse Diabetes Educator; Referring Provider Emergency Medicine; Visit Provider Internal Medicine
DX: I21.4 Non-ST elevation (NSTEMI) myocardial infarction (principal); I10 Essential (primary) hypertension; E78.5 Hyperlipidemia, unspecified; E03.9 Hypothyroidism, unspecified; K21.9 Gastro-esophageal reflux disease without esophagitis; R05.9 Cough, unspecified; R09.82 Postnasal drip; Z20.822 Contact with and (suspected) exposure to COVID-19
CPT/HCPCS: 36415; 71045; 71275; 78452; 80053; 80061; 81001; 82550; 83605; 83690; 83735; 83880; 84145; 84484; 85025; 85379; 85730; 87040; 87633; 87635; 93005; 93010; 93017; 93306; 94640; 96365; 96366; 96375; 96376; 99285; C9803; A9502; J1644; J2920; J2930; J7613; Q9967

== ENCOUNTER → 2022-07-26 13:45 | Outpatient (CLI) | payer MEDICARE, SELFPAY ==
[2022-07-02 18:35] VITALS: BMI 28.5
[2022-07-26 14:40] LABS: COVID19 -Nasal RAPID Negative (Negative)
== END ==
PROVIDERS: PCP Registered Nurse Diabetes Educator; Referring Provider Internal Medicine; Visit Provider Internal Medicine
DX: Z20.822 Contact with and (suspected) exposure to COVID-19 (principal)
CPT/HCPCS: 87635; C9803

== ENCOUNTER → 2022-07-27 11:51 | Outpatient (CLI) | payer MEDICARE, SELFPAY ==
[2022-07-02 18:35] VITALS: BMI 28.5
--- NOTE | 2022-08-01 08:13 | PM.PFT.1 ---
Pulmonary Function Test Referral & Results Date Patient Seen: 07/27/22 Requesting provider: Franco Torre Results: The spirometry demonstrates an FVC of 2.70 L which is 91% of predicted. The FEV1 was measured at 2.12 L which is 95% of predicted. The FEV1/FVC ratio was 79 which is 106% of predicted. Following the administration of bronchodilator there was no perceptible change to above normal numbers. Lung volumes show an SVC of 2.70 L which is 92% of predicted. The diffusing capacity was measured at 20.51 which is 76% of predicted. No hemoglobin value was provided, so no correction for potential anemia could be made, if appropriate. The maximum voluntary ventilation was minimally if at all reduced Interpretation: This study demonstrates normal spirometry and probably normal diffusing capacity. The maybe a minimal reduction diffusing capacity which may suggest some very minor element of disease at the capillary alveolar level Clinical correlation suggested
== END ==
PROVIDERS: PCP Registered Nurse Diabetes Educator; Referring Provider Registered Nurse Diabetes Educator; Visit Provider Registered Nurse Diabetes Educator
DX: R05.3 Chronic cough (principal); J98.8 Other specified respiratory disorders
CPT/HCPCS: 94060; 94726; 94729

== ENCOUNTER → 2022-10-29 11:03 | Outpatient (CLI) | payer MEDICARE, SELFPAY ==
[2022-07-02 18:35] VITALS: BMI 28.5
[2022-10-29 12:57] LABS: TSH w/ Reflex to FT4 1.69 uIU/mL (0.47-4.68)
== END ==
PROVIDERS: PCP Registered Nurse Diabetes Educator; Referring Provider Registered Nurse Diabetes Educator; Visit Provider Registered Nurse Diabetes Educator
DX: E03.9 Hypothyroidism, unspecified (principal)
CPT/HCPCS: 36415; 84443

== ENCOUNTER → 2023-03-15 11:46 | Outpatient (CLI) | payer MEDICARE, SELFPAY ==
[2022-07-02 18:35] VITALS: BMI 28.5
[2023-03-15 12:36] LABS: Influenza A - CEPHEID Flu A NEGATIVE (NEGATIVE); Influenza B - CEPHEID Flu B NEGATIVE (NEGATIVE); Respiratory Syncytial Virus Negative (Negative)
[2023-03-15 12:45] LABS: COVID-19 CEPHEID 4-PLEX PCR Negative (Negative)
== END ==
PROVIDERS: PCP Registered Nurse Diabetes Educator; Visit Provider Family Medicine
DX: J34.89 Other specified disorders of nose and nasal sinuses (principal); R05.9 Cough, unspecified; R06.02 Shortness of breath; R53.81 Other malaise; R53.83 Other fatigue
CPT/HCPCS: 0241U

== ENCOUNTER → 2023-03-15 12:18 | Outpatient (CLI) | payer MEDICARE, SELFPAY ==
[2022-07-02 18:35] VITALS: BMI 28.5
--- NOTE | 2023-03-15 12:22 | DI.RAD.S_ITS ---
PROCEDURE: XR CHEST 2V INDICATIONS: SOB, cough, 06/2022 ?pneumonia TECHNIQUE: 2 views of the chest were acquired. COMPARISON: [facility], CR, XR CHEST 1V, 07/01/2022, 11:20. [facility], CR, XR CHEST 2V, 07/14/2020, 10:04. FINDINGS: Surgical changes and devices: None. Lungs and pleura: Lungs are clear. No pleural effusions or pneumothorax. Mediastinum: Mediastinal contours are normal. Heart size is normal. Bones and chest wall: No suspicious bony abnormalities. Soft tissues appear unremarkable. IMPRESSION: No acute cardiopulmonary process. Dictated by: Donald Mckinley M.D. on 03/15/2023 at 13:33 Approved by: Donald Mckinley M.D. on 03/15/2023 at 13:34
== END ==
PROVIDERS: PCP Registered Nurse Diabetes Educator; Referring Provider Family Medicine; Visit Provider Family Medicine
DX: R05.1 Acute cough (principal); R53.83 Other fatigue; R06.02 Shortness of breath; J34.89 Other specified disorders of nose and nasal sinuses; R53.81 Other malaise
CPT/HCPCS: 0241U; 71046

== ENCOUNTER → 2024-03-27 09:33 | Outpatient (CLI) | payer MEDICARE, SELFPAY ==
[2022-07-02 18:35] VITALS: BMI 28.5
[2024-03-27 10:29] LABS: Hematocrit 40.4 % (36-46); Hemoglobin 13.9 g/dL (12.0-16.0); Mean Corpuscular HGB Conc 34.3 % (30-36); Mean Corpuscular Volume 84.6 fL (80-100); Platelet Count 201 X10^3/uL (150-400); Red Blood Cell Count 4.77 X10^6/uL (4.0-5.2); Red Cell Distribution Width 13.8 % (11.6-14.8); White Blood Cell Count 5.8 X10^3/uL (4.5-11.0)
[2024-03-27 10:39] LABS: Hemoglobin A1C% w Est Avg Glu 5.9 % (4.0-6.0)
[2024-03-27 10:55] LABS: Alanine Aminotransferase 12 IU/L (<35); Albumin Globulin Ratio 1.3 (1.0-2.8); Alkaline Phosphatase 63 U/L (38-126); Aspartate Aminotransferase 25 IU/L (14-36); BUN Creatinine Ratio 20.3 (6-22); Bilirubin Total 1.1 mg/dL (0.2-1.3); Blood Urea Nitrogen 14 mg/dL (7-17); Carbon Dioxide 22 mmol/L (22-32); Chloride 110 mmol/L (98-107); Cholesterol 158 mg/dL (140-199); Estimated Glomerular Filt Rate > 60 mL/min (>60); Glucose 95 mg/dL (80-110); HDL Cholesterol 54 mg/dL (40-60); HEMOLYSIS < 15 (0-50); LDL Cholesterol Calculated 77 mg/dL (<100); Potassium 3.9 mmol/L (3.4-5.1); Sodium 138 mmol/L (137-145); Triglycerides 134 mg/dL (35-150)
[2024-03-27 11:22] LABS: TSH w/ Reflex to FT4 0.85 uIU/mL (0.47-4.68)
== END ==
PROVIDERS: PCP Registered Nurse Diabetes Educator; Referring Provider Registered Nurse Diabetes Educator; Visit Provider Registered Nurse Diabetes Educator
DX: E03.9 Hypothyroidism, unspecified (principal); E78.5 Hyperlipidemia, unspecified; I10 Essential (primary) hypertension
CPT/HCPCS: 36415; 80053; 80061; 83036; 84443; 85027

== ENCOUNTER → 2024-04-08 09:37 | Outpatient (CLI) | payer MEDICARE, SELFPAY ==
[2022-07-02 18:35] VITALS: BMI 28.5
--- NOTE | 2024-04-08 09:37 | DI.RAD.S_ITS ---
PROCEDURE: XR DEXA AXIAL SKELETON INDICATIONS: eval, risk for osteoporosis COMPARISON: None. FINDINGS: Lumbar Spine: Bone mineral density 0.998 g/cm2, T score -0.4. Left Hip: Bone mineral density 0.812 g/cm2, T score -1.1. Left Femoral Neck: Bone mineral density 0.664 g/cm2, T score -1.7. Right Hip: Bone mineral density 0.812 g/cm2, T score -1.1. Right Femoral Neck: Bone mineral density 0.697 g/cm2, T score -1.4. Fracture Risk Calculation (when applicable): 10-year fracture risk of a major osteoporotic fracture without prior fracture 12%, with prior fracture 18% and of a hip fracture without prior fracture 2.6%, with prior fracture 3.4%. (T score greater or equal to -1.0 to: NORMAL) (T score from -1.1 to -2.4: OSTEOPENIA) (T score less than or equal to -2.5: OSTEOPOROSIS) IMPRESSION: 1. Osteopenia of the bilateral hips. Follow-up guidelines as follows: Osteoporosis: Consider a repeat DEXA and Vertebral Fracture Assessment (VFA) exam in 2 years or sooner if medically necessary, to reassess this patient's status. Osteopenia: Consider a repeat DEXA in 2-3 years to reassess this patient's status, or if there is a new clinical indication. Normal: Consider a repeat DEXA in 5 years or sooner, or if there is a new clinical indication. Dictated by: Mala Fernandes M.D. on 04/08/2024 at 10:23 Approved by: Mala Fernandes M.D. on 04/08/2024 at 10:24
== END ==
LOC: RAD 09:37
PROVIDERS: PCP Registered Nurse Diabetes Educator; Referring Provider Registered Nurse Diabetes Educator; Visit Provider Registered Nurse Diabetes Educator
DX: M85.89 Other specified disorders of bone density and structure, multiple sites (principal); Z78.0 Asymptomatic menopausal state
CPT/HCPCS: 77080

== ENCOUNTER → 2024-06-09 16:31 | Outpatient (CLI) | payer MEDICARE, SELFPAY ==
[2022-07-02 18:35] VITALS: BMI 28.5
[2024-06-09 16:57] LABS: Add Manual Diff / Slide Review NO; Basophils Absolute Auto 0 /uL (0-100); Basophils Percent Auto 0.5 % (0-2); Eosinophils Absolute Auto 300 /uL (0-450); Eosinophils Percent Auto 3.5 % (2-4); Hematocrit 42.3 % (36-46); Hemoglobin 14.1 g/dL (12.0-16.0); Lymphocytes Absolute Auto 2400 /uL (1100-4500); Lymphocytes Percent Auto 30.1 % (25-40); Mean Corpuscular HGB Conc 33.4 % (30-36); Mean Corpuscular Hemoglobin 28.8 PG (26-34); Mean Corpuscular Volume 86.4 fL (80-100); Monocytes Absolute Auto 600 /uL (0-900); Monocytes Percent Auto 8.2 % (3-14); Neutrophils Absolute Auto 4500 /uL (1500-7000); Neutrophils Percent Auto 57.7 % (50-75); Platelet Count 238 X10^3/uL (150-400); Red Blood Cell Count 4.89 X10^6/uL (4.0-5.2); Red Cell Distribution Width 13.5 % (11.6-14.8); White Blood Cell Count 7.8 X10^3/uL (4.5-11.0)
[2024-06-09 17:24] LABS: Erythrocyte Sedimentation Rate 7 MM/HR (0-20)
[2024-06-09 17:52] LABS: C-Reactive Protein Quant < 0.5 mg/dL (<1.0); Uric Acid 8.8 mg/dL (2.5-6.2)
== END ==
PROVIDERS: PCP Registered Nurse Diabetes Educator; Referring Provider Registered Nurse Diabetes Educator; Visit Provider Registered Nurse Diabetes Educator
DX: M25.471 Effusion, right ankle (principal)
CPT/HCPCS: 36415; 84550; 85025; 85651; 86140

== ENCOUNTER 2024-06-14 18:20 | Emergency (ER) | payer MEDICARE, SELFPAY ==
[2022-07-02 18:35] VITALS: BMI 28.5
[2024-06-14 18:28] VITALS: BP 169/80; PULSE 63; RESP 18; TEMP 36.8; O2SAT 96; BMI 28.7
--- NOTE | 2024-06-14 19:13 | DI.CT.S_ITS ---
PROCEDURE: CT HEAD/BRAIN WO CON INDICATIONS: fall, hit head TECHNIQUE: Noncontrast 4.5 mm thick angled axial sections acquired from the foramen magnum to the vertex, with coronal and sagittal reformats. For radiation dose reduction, the following was used: automated exposure control, adjustment of mA and/or kV according to patient size. COMPARISON: None. FINDINGS: Image quality: Diagnostic. CSF spaces: Basal cisterns are patent. No extra-axial fluid collections. The ventricles are symmetric in size and shape. Brain: No intracranial bleeds or masses. There is cerebral volume loss for age, with resultant ventricular and sulcal prominence. There are periventricular and deep white matter chronic small vessel ischemic changes. There is intracranial internal carotid artery atherosclerosis. Skull and face: Calvarium and visualized facial bones appear intact, without suspicious lesions. Sinuses: Mucosal thickening of the ethmoid air cells, sphenoid locule is and maxillary sinuses. Air-fluid level in the right maxillary sinus. IMPRESSION: No acute intracranial pathology. Right maxillary sinusitis. Dictated by: Donald Mckinley M.D. on 06/14/2024 at 19:39 Approved by: Donald Mckinley M.D. on 06/14/2024 at 19:42
--- NOTE | 2024-06-14 19:13 | DI.CT.S_ITS ---
PROCEDURE: CT CERVICAL SPINE WO CON INDICATIONS: fall, hit head TECHNIQUE: Noncontrast 3 mm thick sections acquired from the skull base to the T4 level. Sagittal and coronal reformats were then constructed. For radiation dose reduction, the following was used: automated exposure control, adjustment of mA and/or kV according to patient size. COMPARISON: None. FINDINGS: Image quality: Excellent. Bones: No fractures or dislocations. Visualized superior ribs are intact. Soft tissues: Prevertebral soft tissues are normal in thickness. No paravertebral hematomas. No apical pneumothoraces. The thyroid is hypoattenuating. IMPRESSION: No displaced fracture or traumatic subluxation. The thyroid is hypoattenuating, which may indicate thyroiditis. Correlate with thyroid panel. Dictated by: Donald Mckinley M.D. on 06/14/2024 at 19:35 Approved by: Donald Mckinley M.D. on 06/14/2024 at 19:37
[2024-06-14 20:49] VITALS: BP 180/76; PULSE 60; RESP 15; O2SAT 98
[2024-06-14] MEDS: TET,DIPH,PERTUSS(ACELL),VAC/PF 0.5 ML SYRINGE IM (20:50)
--- NOTE | 2024-06-14 22:02 | ED_ITS ---
HPI - Fall General Chief Complaint: Fall Stated Complaint: fall, hit head Time Seen by Provider: 06/14/24 21:52 Source: patient Mode of arrival: Ambulatory History of Present Illness HPI Narrative: 79-year-old female presents for evaluation after ground level fall. Patient was walking outside when she tripped on her garden hose, striking her head against the ground. Denies loss of consciousness, denies use of blood thinners. Patient here for general evaluation after head injury. Related Data Home Medications Medication Instructions Recorded Confirmed multivitamin (Multiple Vitamins 1 tab PO QDAY ##0 08/22/17 06/09/24 tablet) vitamins A,C,[id number] [ICaps PO 03/15/23 06/09/24 AREDS] Previous Rx's Medication Instructions Recorded inhalational spacing device #1 ea 09/03/23 (Aerochamber MV spacer) atorvastatin 10 mg tablet 10 mg PO BEDTIME #90 tabs 06/09/24 fluticasone furoate 100 1 inh inhalation DAILY #90 ea 06/09/24 mcg/actuation blister powder for inhalation (Arnuity Ellipta) levothyroxine 112 mcg tablet 112 mcg PO DAILY #90 tabs 06/09/24 metoprolol succinate 50 mg 50 mg PO DAILY #90 tabs 06/09/24 tablet,extended release 24 hr Allergies Allergy/AdvReac Type Severity Reaction Status Date / Time cefaclor Allergy Severe (Ceclor) Verified 06/14/24 18:33 HIVES AND SWELLING hydrochlorothiazide AdvReac Severe PANCREATITI Verified 06/14/24 18:33 S Patient History Medical History Osteopenia of multiple sites History of non-ST elevation myocardial infarction (NSTEMI) Chronic cough Hypothyroidism (acquired) Impaired fasting blood sugar GERD (gastroesophageal reflux disease) LPRD (laryngopharyngeal reflux disease) Chronic cough Surgical History History of appendectomy Family History Mother Congestive heart failure Father Stroke Alcohol abuse Social History household members: none Smoking Status: Never smoker second hand exposure: No alcohol intake: current substance use type: does not use Smoking Status: Never smoker alcohol intake frequency: holidays/special occasions only Substance Use Type: does not use Exam Initial Vital Signs Initial Vital Signs: Vital Signs Temperature 98.3 F 06/14/24 18:28 Pulse Rate 63 06/14/24 18:28 Respiratory Rate 18 06/14/24 18:28 Blood Pressure 169/80 H 06/14/24 18:28 Pulse Oximetry 96 06/14/24 18:28 Oxygen Delivery Method Room Air 06/14/24 18:28 Const: Awake, alert, no acute distress, nontoxic appearing HEENT: PERRL, EOMI, TM normal bilaterally Skin: Warm, Dry, intact, swelling/bruising around L eye Neuro: AO x3, CN II-XII grossly intact, moves all extremities Course Orders Ordered: Discontinued Medications Diphtheria/Tetanus/Acell Pertussis (Tet,Diph,Pertuss(Acell),Vac/Pf 0.5 Ml Syring e) 0.5 ml IM .ONCE ONE Stop: 06/14/24 20:46 Last Admin: 06/14/24 20:50 Dose: 0.5 ml Documented By: AB Vital Signs Vital signs: Vital Signs - 8 hr 06/14/24 18:28 06/14/24 20:49 Temperature 98.3 F Pulse Rate 63 60 Respiratory Rate 18 15 Blood Pressure 169/80 H 180/76 H Pulse Oximetry 96 98 Oxygen Delivery Method Room Air Room Air MDM - Fall Imaging Data CT - cervical spine: Radiologist's Impression: PROCEDURE: CT CERVICAL SPINE WO CON INDICATIONS: fall, hit head TECHNIQUE: Noncontrast 3 mm thick sections acquired from the skull base to the T4 level. Sagittal and coronal reformats were then constructed. For radiation dose reduction, the following was used: automated exposure control, adjustment of mA and/or kV according to patient size. COMPARISON: None. FINDINGS: Image quality: Excellent. Bones: No fractures or dislocations. Visualized superior ribs are intact. Soft tissues: Prevertebral soft tissues are normal in thickness. No paravertebral hematomas. No apical pneumothoraces. The thyroid is hypoattenuating. IMPRESSION: No displaced fracture or traumatic subluxation. The thyroid is hypoattenuating, which may indicate thyroiditis. Correlate with thyroid panel. Dictated by: Donald Mckinley M.D. on 06/14/2024 at 19:35 Approved by: Donald Mckinley M.D. on 06/14/2024 at 19:37 CT scan - head: Radiologist's Impression: PROCEDURE: CT HEAD/BRAIN WO CON INDICATIONS: fall, hit head TECHNIQUE: Noncontrast 4.5 mm thick angled axial sections acquired from the foramen magnum to the vertex, with coronal and sagittal reformats. For radiation dose reduction, the following was used: automated exposure control, adjustment of mA and/or kV according to patient size. COMPARISON: None. FINDINGS: Image quality: Diagnostic. CSF spaces: Basal cisterns are patent. No extra-axial fluid collections. The ventricles are symmetric in size and shape. Brain: No intracranial bleeds or masses. There is cerebral volume loss for age, with resultant ventricular and sulcal prominence. There are periventricular and deep white matter chronic small vessel ischemic changes. There is intracranial internal carotid artery atherosclerosis. Skull and face: Calvarium and visualized facial bones appear intact, without suspicious lesions. Sinuses: Mucosal thickening of the ethmoid air cells, sphenoid locule is and maxillary sinuses. Air-fluid level in the right maxillary sinus. IMPRESSION: No acute intracranial pathology. Right maxillary sinusitis. Dictated by: Donald Mckinley M.D. on 06/14/2024 at 19:39 Approved by: Donald Mckinley M.D. on 06/14/2024 at 19:42 MDM Narrative Medical decision making narrative: Ground level fall with minor head injury. Patient does have a periorbital contusion, CT imaging negative for acute findings. Discharge Plan Departure Patient Disposition: Home Clinical Impression: Contusion of face Instructions: DI for Contusion Activity Restrictions/Additional Instructions: TAKE TYLENOL AND IBUPROFEN NEEDED FOR PAIN. APPLY ICE TO AREAS OF SWELLING NEEDED. Prescriptions: No Action multivitamin [Multiple Vitamins] 1 EACH tablet 1 tab PO QDAY Qty: 0 vitamins A,C,Q-[id number]-dsdopj [ICaps AREDS] PO atorvastatin 10 mg tablet 10 mg PO BEDTIME Qty: 90 3RF levothyroxine 112 mcg tablet 112 mcg PO DAILY Qty: 90 3RF metoprolol succinate 50 mg tablet extended release 24 hr 50 mg PO DAILY Qty: 90 3RF Arnuity Ellipta 100 mcg/actuation blister with device 1 inh inhalation DAILY Qty: 90 4RF (DME) Aerochamber MV Spacer See Rx Instructions .Route Qty: 1 1RF Rx Instructions: As directed Referrals: Franco Torre ARNP [Primary Care Provider] - Stand Alone Forms: Patient Portal/API
[2024-06-14 22:12] VITALS: BP 176/84; PULSE 64; RESP 16; O2SAT 99
== END 2024-06-14 22:13 | disposition home or self-care (01) ==
PROVIDERS: Emergency Provider Emergency Medicine; PCP Registered Nurse Diabetes Educator
DX: S00.83XA Contusion of other part of head, initial encounter (principal); W01.198A Fall on same level from slipping, tripping and stumbling with subsequent striking against other object, initial encounter; Z23 Encounter for immunization
CPT/HCPCS: 70450; 72125; 90471; 99284; 90715

== ENCOUNTER → 2024-07-06 13:16 | Outpatient (CLI) | payer MEDICARE, SELFPAY ==
[2022-07-02 18:35] VITALS: BMI 28.5
[2024-07-06 15:27] LABS: Influenza A - CEPHEID Flu A NEGATIVE (NEGATIVE); Influenza B - CEPHEID Flu B NEGATIVE (NEGATIVE); Respiratory Syncytial Virus Negative (Negative)
[2024-07-06 15:30] LABS: COVID-19 CEPHEID 4-PLEX PCR Negative (Negative)
== END ==
PROVIDERS: PCP Registered Nurse Diabetes Educator; Visit Provider Physician Assistant
DX: R05.1 Acute cough (principal)
CPT/HCPCS: 0241U

== ENCOUNTER → 2024-12-04 11:17 | Outpatient (CLI) | payer MEDICARE, SELFPAY ==
[2022-07-02 18:35] VITALS: BMI 28.5
--- NOTE | 2024-12-04 11:18 | DI.RAD.S_ITS ---
PROCEDURE: XR WRIST RT MIN 3V INDICATIONS: Wrist pain from fall TECHNIQUE: Four views of the wrist were acquired. COMPARISON: None. FINDINGS: Bones: Nondisplaced, intra-articular fracture through the radial styloid. Radiocarpal and distal radioulnar alignment is normal. Soft tissues: No suspicious soft tissue calcifications. IMPRESSION: Nondisplaced radial styloid fracture. Dictated by: Roxann Montero M.D. on 12/04/2024 at 14:02 Approved by: Roxann Montero M.D. on 12/04/2024 at 14:04
== END ==
PROVIDERS: PCP Registered Nurse Diabetes Educator; Referring Provider Nurse Practitioner Family; Visit Provider Nurse Practitioner Family
DX: S52.514A Nondisplaced fracture of right radial styloid process, initial encounter for closed fracture (principal); X58.XXXA Exposure to other specified factors, initial encounter
CPT/HCPCS: 73110

== ENCOUNTER → 2025-05-26 08:03 | Outpatient (CLI) | payer MEDICARE, SELFPAY ==
[2022-07-02 18:35] VITALS: BMI 28.5
[2025-05-26 08:46] LABS: Hematocrit 39.9 % (36-46); Hemoglobin 13.8 g/dL (12.0-16.0); Mean Corpuscular HGB Conc 34.6 % (30-36); Mean Corpuscular Hemoglobin 29.3 PG (26-34); Mean Corpuscular Volume 84.6 fL (80-100); Platelet Count 233 X10^3/uL (150-400)
[2025-05-26 08:53] LABS: Hemoglobin A1C% w Est Avg Glu 5.4 % (4.0-6.0)
[2025-05-26 09:32] LABS: Alanine Aminotransferase 15 IU/L (<35); Albumin 4.0 g/dL (3.5-5.0); Albumin Globulin Ratio 1.4 (1.0-2.8); Alkaline Phosphatase 60 U/L (38-126); Blood Urea Nitrogen 25 mg/dL (7-17); Calcium 9.3 mg/dL (8.4-10.2); Carbon Dioxide 25 mmol/L (22-32); Chloride 106 mmol/L (98-107); Cholesterol 163 mg/dL (140-199); Estimated Glomerular Filt Rate > 60 mL/min (>60); Globulin 2.9 g/dL (1.7-4.1); Glucose 103 mg/dL (70-99); HDL Cholesterol 61 mg/dL (40-60); HEMOLYSIS < 15 (0-50); Potassium 4.4 mmol/L (3.4-5.1); Sodium 138 mmol/L (137-145); Total Protein 6.9 g/dL (6.3-8.2); Triglycerides 118 mg/dL (35-150)
[2025-05-26 10:00] LABS: TSH w/ Reflex to FT4 0.93 uIU/mL (0.47-4.68)
== END ==
PROVIDERS: PCP Registered Nurse Diabetes Educator; Referring Provider Registered Nurse Diabetes Educator; Visit Provider Registered Nurse Diabetes Educator
DX: I10 Essential (primary) hypertension (principal); R73.01 Impaired fasting glucose; M85.89 Other specified disorders of bone density and structure, multiple sites; E03.9 Hypothyroidism, unspecified; E78.5 Hyperlipidemia, unspecified
CPT/HCPCS: 36415; 80053; 80061; 83036; 84443; 85027

== ENCOUNTER → 2025-10-19 14:02 | Outpatient (CLI) | payer MEDICARE, SELFPAY ==
[2025-06-25 13:54] VITALS: BMI 28.5
[2025-10-19 19:05] LABS: Influenza A - CEPHEID Flu A NEGATIVE (NEGATIVE); Influenza B - CEPHEID Flu B NEGATIVE (NEGATIVE)
[2025-10-19 19:08] LABS: COVID-19 CEPHEID 4-PLEX PCR Negative (Negative)
== END ==
PROVIDERS: PCP Registered Nurse Diabetes Educator; Visit Provider Physician Assistant
DX: R05.1 Acute cough (principal)
CPT/HCPCS: 87637

== ENCOUNTER → 2025-10-19 14:20 | Outpatient (CLI) | payer MEDICARE, SELFPAY ==
[2025-06-25 13:54] VITALS: BMI 28.5
--- NOTE | 2025-10-19 14:21 | DI.RAD.S_ITS ---
PROCEDURE: XR CHEST 2V INDICATIONS: acute on chronic cough x 1 week / years TECHNIQUE: 2 views of the chest were acquired. COMPARISON: [facility], CR, XR CHEST 2V, 03/15/2023, 12:20. FINDINGS: Increased moderate bilateral perihilar and lower lobe peribronchial thickening with mild patchy lower lobe opacities, more than expected for expiratory result and bronchitis, viral infection, bronchopneumonia, asthma or other process should be considered. Rarely atypical pneumonia or other cause could be considered. Mild calcifications of the aortic arch and tortuous descending aorta unchanged. Borderline mildly enlarged cardiopericardial silhouette unchanged. Mildly prominent segundo, pulmonary vessels and/or hilar lymph nodes unchanged. No pneumothorax, no pleural effusion, no lobar consolidation. IMPRESSION: Increased peribronchial thickening and patchy opacities as discussed above. Follow-up suggested. If symptoms persist or worsen, or there is high clinical suspicion of thoracic abnormality, CT chest could be performed. Dictated by: Sunil Choi M.D. on 10/20/2025 at 11:42 Approved by: Sunil Choi M.D. on 10/20/2025 at 11:52
== END ==
PROVIDERS: PCP Registered Nurse Diabetes Educator; Referring Provider Physician Assistant; Visit Provider Physician Assistant
DX: J06.9 Acute upper respiratory infection, unspecified (principal); R05.1 Acute cough
CPT/HCPCS: 71046; 87637

== ENCOUNTER → 2025-10-28 10:59 | Outpatient (CLI) | payer MEDICARE, SELFPAY ==
[2025-06-25 13:54] VITALS: BMI 28.5
--- NOTE | 2025-10-28 11:04 | DI.RAD.S_ITS ---
PROCEDURE: XR CHEST 2V INDICATIONS: f/u after antibiotics, compare chest xray TECHNIQUE: 2 views of the chest were acquired. COMPARISON: [facility], , XR CHEST 2V, 10/19/2025, 14:31. FINDINGS: Surgical changes and devices: None. Lungs and pleura: Lungs are clear. No pleural effusions or pneumothorax. Mediastinum: Mediastinal contours are normal. Heart size is normal. Bones and chest wall: No suspicious bony abnormalities. Soft tissues appear unremarkable. IMPRESSION: No acute cardiopulmonary abnormality is seen. Dictated by: Mu Giron M.D. on 10/28/2025 at 11:26 Approved by: Mu Giron M.D. on 10/28/2025 at 11:26
== END ==
LOC: RAD 11:03
PROVIDERS: PCP Registered Nurse Diabetes Educator; Referring Provider Physician Assistant; Visit Provider Physician Assistant
DX: J18.9 Pneumonia, unspecified organism (principal)
CPT/HCPCS: 71046